=== PATIENT | male | born 1960 | race Caucasian/White ===

== ENCOUNTER 2020-04-14 12:49 | Outpatient (REF) | payer OTHER, SELFPAY ==
[2020-04-14 13:59] LABS: Iron 254 mcg/dL (45-160); Percent Iron Saturation 93 % (15-50); Total Iron Binding Capacity 274 mcg/dL (228-428); Unsaturated Iron Binding 20 ug/dL
[2020-04-14 14:19] LABS: Ferritin 67 ng/mL (20-250)
== END 2020-04-14 12:50 | disposition home or self-care (01) ==
LOC: HO.BBR 12:49
PROVIDERS: Visit Provider Internal Medicine
DX: E83.110 Hereditary hemochromatosis (principal)
CPT/HCPCS: 36415; 82728; 83540

== ENCOUNTER 2020-04-24 07:35 | Outpatient (REF) | payer OTHER, SELFPAY ==
--- NOTE | ~2020-04-24 | US_ITS ---
EXAMINATION: US ABDOMEN COMPLETE CLINICAL INFORMATION: Hemochromatosis. COMPARISON: Ultrasound abdomen complete dated 03/07/2018 and 01/22/2016. TECHNIQUE: Real-time imaging of the abdominal viscera. FINDINGS: PANCREAS: Most of the pancreas is obscured by overlying gas except for partially visualized body of the pancreas which is unremarkable. ABDOMINAL AORTA: The abdominal aorta is slightly ectatic but otherwise unremarkable. INFERIOR VENA CAVA: Visualized portions are normal. LIVER: The liver is normal in size. The liver contour is normal. There is diffuse increased liver echogenicity. No focal hepatic lesion. There is no intrahepatic biliary duct dilatation seen. GALLBLADDER: The gallbladder wall is mildly thickened measuring 0.5 cm. The gallbladder is physiologically distended without evidence of stones, sludge, polyps, or pericholecystic fluid. COMMON BILE DUCT: Normal in caliber measuring 0.3 cm in diameter. RIGHT KIDNEY: Normal. No hydronephrosis. No renal calculi or focal parenchymal lesions. The kidney measures 11.3 cm in maximum dimension. LEFT KIDNEY: There are 2 anechoic cysts in the lower pole measuring 5.5 x 3.5 x 3.2 cm and 3.2 x 3.1 x 2.2 cm. They are stable compared to previous study. No hydronephrosis. No renal calculi or focal parenchymal lesions. The kidney measures 11.6 cm in maximum dimension. SPLEEN: Normal. The spleen measures 10.2 cm in maximum dimension. FREE FLUID: None. US/US abdomen complete IMPRESSION: 2 lower pole left renal cysts are stable compared to previous ultrasound 03/07/2018. Mild hepatic steatosis without any focal lesion. Mild overall thickening but no echogenic stones or pericholecystic fluid collection.
== END 2020-04-24 07:36 | disposition home or self-care (01) ==
LOC: HO.US 07:35
PROVIDERS: Visit Provider Internal Medicine
DX: E83.110 Hereditary hemochromatosis (principal)
CPT/HCPCS: 76700

== ENCOUNTER 2020-05-30 08:41 | Outpatient (REF) | payer OTHER, SELFPAY ==
[2020-05-30 09:44] LABS: MANUAL DIFF FLAG NO
[2020-05-30 09:57] LABS: Alanine Aminotransferase 21 U/L (0-40); Albumin Level 4.1 g/dL (3.5-5.0); Alkaline Phosphatase 74 U/L (39-117); Aspartate Amino Transferase 27 U/L (5-37); Bilirubin Direct 0.2 mg/dL (0.0-0.5); Bilirubin Total 0.4 mg/dL (0.0-1.0); Total Protein 6.9 g/dL (6.5-8.0)
[2020-05-30 09:58] LABS: Basophils Percent Auto 0.6 % (0-2); Eosinophils Absolute Auto 0.1 X10*3/uL (0.0-0.4); Eosinophils Percent Auto 1.4 % (0-4); Hematocrit 44.5 % (42-52); Hemoglobin 14.6 g/dl (14.0-18.0); Imm Gran Abs Auto 0.03 X10*3/uL (0.00-0.03); Imm Gran Pct Auto 0.5 % (0.0-0.4); Lymphocytes Percent Auto 30.3 % (20-40); Mean Corpuscular HGB Conc 32.8 g/dl (31.0-36.0); Mean Corpuscular Hemoglobin 33.3 pg (27.0-33.0); Mean Corpuscular Volume 101.4 fL (80-98); Monocytes Absolute Auto 0.9 X10*3/uL (0.1-1.2); Monocytes Percent Auto 13.7 % (2-11); Neutrophils Absolute Auto 3.5 X10*3/uL (2.0-8.3); Neutrophils Percent Auto 53.5 % (45-73); Platelet Count 282 X10*3/uL (160-400); Red Blood Count 4.39 X10*6/uL (4.60-5.80); Red Cell Distribution Width 12.5 % (11.0-16.0); White Blood Count 6.5 X10*3/uL (4.8-10.8)
[2020-05-30 10:01] LABS: INTERNATIONAL NORM RATIO 0.9 (0.9-1.1); Prothrombin Time 11.2 SEC (10.8-13.0)
[2020-06-02 11:46] LABS: Alpha Fetoprotein 1.9 ng/mL (<6.1)
== END 2020-05-30 08:42 | disposition home or self-care (01) ==
LOC: HO.LAB 08:41
PROVIDERS: PCP Internal Medicine Medical Oncology; Visit Provider Internal Medicine
DX: E83.110 Hereditary hemochromatosis (principal)
CPT/HCPCS: 36415; 80076; 82105; 85025; 85610

== ENCOUNTER 2021-01-16 08:47 | Outpatient (REF) | payer OTHER, SELFPAY ==
[2021-01-16 10:29] LABS: Iron 253 mcg/dL (45-160); Total Iron Binding Capacity < 270 mcg/dL (228-428); Unsaturated Iron Binding < 17 ug/dL
[2021-01-16 10:49] LABS: Ferritin 122 ng/mL (20-250)
== END 2021-01-16 08:48 | disposition home or self-care (01) ==
LOC: HO.BBR 08:47
PROVIDERS: Visit Provider Internal Medicine
DX: E83.110 Hereditary hemochromatosis (principal)
CPT/HCPCS: 36415; 82728; 83540

== ENCOUNTER 2021-03-09 09:54 | Outpatient (REF) | payer OTHER, SELFPAY ==
[2021-03-09 10:08] LABS: MANUAL DIFF FLAG NO
[2021-03-09 10:21] LABS: Basophils Percent Auto 0.7 % (0-2); Eosinophils Absolute Auto 0.1 X10*3/uL (0.0-0.4); Eosinophils Percent Auto 2.5 % (0-4); Hematocrit 43.2 % (42.0-52.0); Hemoglobin 14.8 g/dl (14.0-18.0); Imm Gran Abs Auto 0.02 X10*3/uL (0.00-0.03); Imm Gran Pct Auto 0.4 % (0.0-0.4); Lymphocytes Absolute Auto 2.1 X10*3/uL (1.2-4.9); Lymphocytes Percent Auto 37.3 % (20-40); Mean Corpuscular HGB Conc 34.3 g/dl (31.0-36.0); Mean Corpuscular Hemoglobin 34.3 pg (27.0-33.0); Mean Platelet Volume 9.5 fL (9.4-12.4); Monocytes Absolute Auto 0.6 X10*3/uL (0.1-1.2); Monocytes Percent Auto 10.2 % (2-11); Neutrophils Absolute Auto 2.7 x10*3/uL (2.0-8.3); Neutrophils Percent Auto 48.9 % (45-73); Platelet Count 254 X10*3/uL (160-400); Red Blood Count 4.32 X10*6/uL (4.60-5.80); Red Cell Distribution Width 12.3 % (11.0-16.0); White Blood Count 5.6 X10*3/uL (4.8-10.8)
[2021-03-09 11:09] LABS: Alanine Aminotransferase 21 U/L (0-40); Albumin Level 4.1 g/dL (3.5-5.0); Alkaline Phosphatase 72 U/L (39-117); Anion Gap 10 (12-20); Aspartate Amino Transferase 25 U/L (5-37); Bilirubin Total 0.5 mg/dL (0.0-1.0); Blood Urea Nitrogen 13 mg/dL (9-16); Calcium 9.7 mg/dL (8.4-10.2); Carbon Dioxide 27 mmol/L (22-29); Chloride 107 mmol/L (96-108); Estimated Glomerular Filt Rate > 60; Glucose Random 91 mg/dL (60-115); Potassium 4.7 mmol/L (3.3-5.1); Sodium 139 mmol/L (135-145)
[2021-03-09 11:18] LABS: Thyroid Stimulating Hormone 0.93 uIU/mL (0.32-4.0)
== END 2021-03-09 09:55 | disposition home or self-care (01) ==
LOC: HO.LAB 09:54
PROVIDERS: PCP Internal Medicine Medical Oncology; Visit Provider Internal Medicine Medical Oncology
DX: E83.110 Hereditary hemochromatosis (principal)
CPT/HCPCS: 36415; 80053; 84443; 85025

== ENCOUNTER 2021-04-16 15:11 | Outpatient (REF) | payer OTHER, SELFPAY | END 2021-04-16 15:12 | disposition home or self-care (01) | LOC: HO.BBR 15:11 | PROVIDERS: Visit Provider Internal Medicine | DX: Z13.89 Encounter for screening for other disorder (principal) ==

== ENCOUNTER 2021-05-14 07:49 | Outpatient (REF) | payer OTHER, SELFPAY ==
--- NOTE | ~2021-05-14 | US_ITS ---
EXAMINATION: US ABDOMEN COMPLETE CLINICAL INFORMATION: Hereditary hemochromatosis. COMPARISON: Ultrasound abdomen complete 04/24/2020 and 03/07/2018. TECHNIQUE: Real-time imaging of the abdominal viscera. FINDINGS: PANCREAS: The head and the body the pancreas is homogeneous in echotexture. The tail is obscured by overlying gas. ABDOMINAL AORTA: The proximal, mid, and distal segments are normal in caliber. INFERIOR VENA CAVA: Visualized portions are normal. LIVER: The liver is normal in size. The liver contour is normal. There is increased liver echogenicity. No focal hepatic lesion. There is no intrahepatic biliary duct dilatation seen. GALLBLADDER: The gallbladder wall thickness is 0.23 cm. The gallbladder is physiologically distended without evidence of stones, sludge, polyps, wall thickening or pericholecystic fluid. COMMON BILE DUCT: Normal in caliber measuring 0.4 cm in diameter. RIGHT KIDNEY: Normal. No hydronephrosis. No renal calculi or focal parenchymal lesions. The kidney measures 12.2 cm in maximum dimension. LEFT KIDNEY: There are anechoic cysts in the lower pole measuring 5.1 x 3.7 x 4.6 cm and 3.3 x 3.2 x 3.6 cm. No hydronephrosis or renal calculi. The kidney measures 11.5 cm in maximum dimension. SPLEEN: Normal. The spleen measures 10.0 cm in maximum dimension. FREE FLUID: None. US/US abdomen complete IMPRESSION: Mild hepatic steatosis without focal lesion. Left renal lower pole cysts.
== END 2021-05-14 07:50 | disposition home or self-care (01) ==
LOC: HO.US 07:49
PROVIDERS: Visit Provider Internal Medicine
DX: E83.110 Hereditary hemochromatosis (principal)
CPT/HCPCS: 76700

== ENCOUNTER 2021-05-15 09:01 | Outpatient (REF) | payer OTHER, SELFPAY ==
[2021-05-15 09:29] LABS: MANUAL DIFF FLAG NO
[2021-05-15 09:47] LABS: Basophils Percent Auto 0.5 % (0-2); Eosinophils Absolute Auto 0.1 X10*3/uL (0.0-0.4); Eosinophils Percent Auto 1.6 % (0-4); Hematocrit 43.8 % (42.0-52.0); Imm Gran Abs Auto 0.03 X10*3/uL (0.00-0.03); Imm Gran Pct Auto 0.5 % (0.0-0.4); Lymphocytes Absolute Auto 2.3 X10*3/uL (1.2-4.9); Lymphocytes Percent Auto 36.6 % (20-40); Mean Corpuscular HGB Conc 34.2 g/dl (31.0-36.0); Mean Corpuscular Hemoglobin 33.5 pg (27.0-33.0); Mean Corpuscular Volume 97.8 fL (80.0-98.0); Mean Platelet Volume 9.7 fL (9.4-12.4); Monocytes Absolute Auto 0.8 X10*3/uL (0.1-1.2); Monocytes Percent Auto 12.5 % (2-11); Neutrophils Percent Auto 48.3 % (45-73); Platelet Count 234 X10*3/uL (160-400); Red Blood Count 4.48 X10*6/uL (4.60-5.80); Red Cell Distribution Width 13.1 % (11.0-16.0); White Blood Count 6.2 X10*3/uL (4.8-10.8)
[2021-05-15 09:50] LABS: Alanine Aminotransferase 22 U/L (0-40); Albumin Level 4.3 g/dL (3.5-5.0); Alkaline Phosphatase 76 U/L (39-117); Aspartate Amino Transferase 25 U/L (5-37); Bilirubin Direct 0.4 mg/dL (0.0-0.5); Bilirubin Total 0.9 mg/dL (0.0-1.0); Total Protein 7.2 g/dL (6.5-8.0)
[2021-05-15 09:53] LABS: INTERNATIONAL NORM RATIO 0.9 (0.9-1.1); Prothrombin Time 10.7 SEC (9.9-13.0)
[2021-05-18 13:02] LABS: Alpha Fetoprotein 2.2 ng/mL (<6.1)
[2021-05-21 15:37] LABS: FIB-ALT 17 U/L (9-46); FIB-Alpha-2-Macroglobulin 158 mg/dL (106-279); FIB-Apolipoprotein A1 187 mg/dL (94-176); FIB-GGT 51 U/L (3-70); FIB-Haptoglobin 111 mg/dL (43-212); FIB-Total Bilirubin 0.8 mg/dL (0.2-1.2); Liver Fibrosis Score 0.23; Liver Fibrosis Stage F0-F1; Nec Inflam Act Grade A0; Nec Inflam Act Score 0.06
== END 2021-05-15 09:02 | disposition home or self-care (01) ==
LOC: HO.LAB 09:01
PROVIDERS: PCP Internal Medicine Medical Oncology; Visit Provider Internal Medicine
DX: E83.110 Hereditary hemochromatosis (principal)
CPT/HCPCS: 36415; 80076; 81596; 82105; 85025; 85610

== ENCOUNTER 2021-05-18 09:34 | Day surgery (SDC) | payer OTHER, SELFPAY ==
[2021-05-12 15:40] VITALS: BMI 23.1
--- NOTE | 2021-05-15 09:24 | P.CONAN_ITS ---
Documented by User: Zunilda Guardado NP 05/15/21 09:25 HPI - Anesthesia Eval Consult details Narrative: 61yo M for Colonoscopy [facility] Past Medical History Medical History (Updated 05/12/21 @ 15:37 by Tahira Sinha RN) Hemochromatosis HTN (hypertension) Surgical History Surgical History (Updated 05/12/21 @ 15:39 by Tahira Sinha RN) H/O colonoscopy History of liver biopsy Hx of shoulder surgery Social History Social History Patient Tobacco Use Status: Current someday Tobacco user Tobacco use type: Cigarette Cigarettes Per Day: 5 Use of substances other than those prescribed or required for medical reasons: No Advance Directives: No Advance Directives Information Provided: Yes Advance Directives on File: No Meds Allergies Allergy/AdvReac Type Severity Reaction Status Date / Time No Known Allergies Allergy Unverified 11/01/19 15:09 [No Known Allergies*] Home Medications Medication Instructions Recorded Confirmed Last Taken Type metoprolol tartrate 25 mg tablet 3 tab PO DAILY 05/12/21 05/12/21 05/18/21 History Exam Exam Date and Time: May 15, 2021 0924 Height,Weight and Vital Signs: Height 5 ft 11 in Weight 75.296 kg Pertinent Lab Results Pertinent Lab Results: Laboratory Tests 03/09/21 03/09/21 10:06 10:06 WBC 5.6 Hgb 14.8 Hct 43.2 Plt Count 254 Sodium 139 Potassium 4.7 Chloride 107 Carbon Dioxide 27 BUN 13 Creatinine 0.95 Assessment and Plan Assessment Anesthesia Assessment: Chart Reviewed Documented by User: Dk Brito MD 05/18/21 21:13 HPI - Anesthesia Eval Consult details Narrative: 61yo M for Colonoscopy haemochromatosis [facility] Past Medical History Medical History (Updated 05/12/21 @ 15:37 by Tahira Sinha RN) Hemochromatosis HTN (hypertension) Functional capacity: independent ambulation Family History Family history of problems with anesthesia: No Surgical History Surgical History (Updated 05/12/21 @ 15:39 by Tahira Sinha RN) H/O colonoscopy History of liver biopsy Hx of shoulder surgery History of Problems with Anesthesia: No Social History Social History Patient Tobacco Use Status: Current someday Tobacco user Tobacco use type: Cigarette Cigarettes Per Day: 5 Use of substances other than those prescribed or required for medical reasons: No Advance Directives: No Advance Directives Information Provided: Yes Advance Directives on File: No Meds Allergies Allergy/AdvReac Type Severity Reaction Status Date / Time No Known Allergies Allergy Unverified 11/01/19 15:09 [No Known Allergies*] Home Medications Medication Instructions Recorded Confirmed Last Taken Type metoprolol tartrate 25 mg tablet 3 tab PO DAILY 05/12/21 05/12/21 05/18/21 History Exam Airway Mallampati Class: II TM Dist: >3cm Neck ROM: Full Loose/Missing/Broken Teeth: Yes Heart: rrr Lungs: b/l breath sounds Assessment and Plan Assessment Anesthesia Assessment: Anesthesia Plan Discussed Final Anesthetic Review Family History of Problems with Anesthesia: No History of Problems with Anesthesia: No ASA Class: II Final Preanesthetic Review: Meds/Allgs Chart Reviewed, Consent Obtained/Reviewed and Anes Risks/Benef Reviewed Patient Risk: Intermediate Procedure Risk: Intermediate Anesthetic Plan Anesthetic Plan: MAC: Disposition: Standard PACU
[2021-05-18 09:56] VITALS: BP 144/76; PULSE 49; RESP 16; TEMP 36.5; O2SAT 98
[2021-05-18] MEDS: Lactated Ringers 1,000 ML 100 ML IVCONT (10:05)
--- NOTE | 2021-05-18 10:21 | PC.NURSE ---
MD FORD AWARE OF PATIENT LOW HEART RATE. ASYMPTOMATIC.
--- NOTE | 2021-05-18 12:19 | P.BOP_ITS ---
Brief Operative Note Date of Service: 05/18/21 Pre-op diagnosis: Screening, Family history of colon cancer Post-op diagnosis: other (Diverticulosis) Procedure: Colonoscopy to the cecum Surgeon: Serjio Richey Anesthesia: MAC Was an [employer] used for this Procedure?: No Estimated blood loss (mL): 0 Pathology: none sent Condition: stable Disposition: PACU
[2021-05-18 12:22] VITALS: BP 123/71; PULSE 61; RESP 16; TEMP 37.1; O2SAT 98
[2021-05-18 12:38] VITALS: BP 133/77; PULSE 47; RESP 18; TEMP 36.7; O2SAT 99
--- NOTE | 2021-05-18 13:24 | OP_ITS ---
SURGEON: Serjio Richey MD INDICATIONS: The patient presents for evaluation of colorectal cancer screening and family history of colon cancer. Full consent has been obtained from him for this, including risks of bleeding and perforation. PREOPERATIVE DIAGNOSIS: POSTOPERATIVE DIAGNOSIS: PROCEDURE PERFORMED: Colonoscopy to the cecum. ESTIMATED BLOOD LOSS: COMPLICATIONS: ANESTHESIA: Monitored anesthesia care. ASSISTANTS: SPECIMENS: PREOPERATIVE DIAGNOSES: Colorectal cancer screening and family history of colon cancer. POSTOPERATIVE DIAGNOSES: Colorectal cancer screening and family history of colon cancer, diverticulosis and internal hemorrhoids. DESCRIPTION OF PROCEDURE: The patient was placed in the left lateral decubitus position. The digital rectal exam revealed no abnormalities. The Olympus video pediatric colonoscope was entered into the rectum and advanced easily to the cecum. Once in the cecum, I did identify normal-appearing cecal pouch with normal-appearing ileocecal valve. The entire cecum and ileocecal valve appeared normal. There was transillumination of light deep in the right lower quadrant. The scope was slowly withdrawn assessing all mucosal surfaces carefully. Preparation was excellent. I did not visualize any sign of polyps, colitis, nor angiodysplasia. There was a mild amount of sigmoid diverticulosis. In the rectum, scope was retroflexed visualizing internal hemorrhoids, but no other pathology. The rectal mucosa appeared normal. The scope was straightened and withdrawn from the patient. He tolerated the procedure well and was returned to the recovery area in stable condition. IMPRESSION: 1. Diverticulosis. 2. Internal hemorrhoids. PLAN: Given his family history of his sister having had colon cancer in her 40s, I would recommend a repeat colonoscopy in 5 years for further screening. He was advised to see me in 1 year for followup of the underlying hemochromatosis. He would otherwise see me on a p.r.n. basis. This has been discussed with his . MD MIRTA Emmanuel/JENS / [id number]
== END 2021-05-18 13:00 | disposition home or self-care (01) ==
PROVIDERS: PCP Internal Medicine Medical Oncology; Visit Provider Internal Medicine
PROC: 0DJD8ZZ Inspection of Lower Intestinal Tract, Via Natural or Artificial Opening Endoscopic (ICD-10-PCS; CPT 45378; principal; 2021-05-18 11:00)
DX: Z12.11 Encounter for screening for malignant neoplasm of colon (principal); Z80.0 Family history of malignant neoplasm of digestive organs; K57.30 Diverticulosis of large intestine without perforation or abscess without bleeding; K64.8 Other hemorrhoids; I10 Essential (primary) hypertension; E83.110 Hereditary hemochromatosis; F17.210 Nicotine dependence, cigarettes, uncomplicated; Z79.899 Other long term (current) drug therapy
CPT/HCPCS: 45378

== ENCOUNTER 2021-07-29 14:49 | Outpatient (REF) | payer OTHER, SELFPAY ==
[2021-07-29 16:29] LABS: Iron 249 mcg/dL (45-160); Percent Iron Saturation 88 % (15-50); Total Iron Binding Capacity 283 mcg/dL (228-428); Unsaturated Iron Binding 34 ug/dL
[2021-07-29 16:49] LABS: Ferritin 44 ng/mL (20-250)
== END 2021-07-29 14:50 | disposition home or self-care (01) ==
LOC: HO.BBR 14:49
PROVIDERS: Visit Provider Internal Medicine
DX: E83.110 Hereditary hemochromatosis (principal)
CPT/HCPCS: 36415; 82728; 83540

== ENCOUNTER 2021-11-11 15:13 | Outpatient (REF) | payer OTHER, SELFPAY | END 2021-11-11 15:14 | disposition home or self-care (01) | LOC: HO.BBR 15:13 | PROVIDERS: Visit Provider Internal Medicine | DX: Z13.89 Encounter for screening for other disorder (principal) ==

== ENCOUNTER 2022-02-11 13:48 | Outpatient (REF) | payer OTHER, SELFPAY ==
[2022-02-11 16:04] LABS: Ferritin 34 ng/mL (20-250); Iron 251 mcg/dL (45-160); Percent Iron Saturation 85 % (15-50); Total Iron Binding Capacity 294 mcg/dL (228-428); Unsaturated Iron Binding 43 ug/dL
== END 2022-02-11 13:49 | disposition home or self-care (01) ==
LOC: HO.BBR 13:48
PROVIDERS: PCP Internal Medicine Medical Oncology; Visit Provider Internal Medicine
DX: E83.110 Hereditary hemochromatosis (principal)
CPT/HCPCS: 36415; 82728; 83540

== ENCOUNTER 2022-05-07 14:05 | Outpatient (REF) | payer OTHER, SELFPAY | END 2022-05-07 14:06 | disposition home or self-care (01) | LOC: HO.BBR 14:05 | PROVIDERS: Visit Provider Internal Medicine | DX: Z13.89 Encounter for screening for other disorder (principal) ==

== ENCOUNTER 2022-06-12 07:44 | Outpatient (REF) | payer OTHER, SELFPAY ==
[2022-06-12 09:34] LABS: Prostate Specific Antigen 2.86 ng/mL (<0.05-4.0)
[2022-06-12 09:41] LABS: Alanine Aminotransferase 20 U/L (0-40); Albumin Level 4.3 g/dL (3.5-5.0); Alkaline Phosphatase 60 U/L (39-117); Anion Gap 14 (12-20); Aspartate Amino Transferase 28 U/L (5-37); Bilirubin Total 0.8 mg/dL (0.0-1.0); Blood Urea Nitrogen 12 mg/dL (9-16); Calcium 9.7 mg/dL (8.4-10.2); Carbon Dioxide 23 mmol/L (22-29); Chloride 110 mmol/L (96-108); Cholesterol 210 mg/dL; Estimated Glomerular Filt Rate > 60; Glucose Random 98 mg/dL (60-115); HDL Cholesterol 68 mg/dL; Potassium 4.9 mmol/L (3.3-5.1); Sodium 142 mmol/L (135-145); Total Protein 6.9 g/dL (6.5-8.0)
[2022-06-12 09:52] LABS: Creatinine Urine 179.91 mg/dL
[2022-06-16 16:47] LABS: Triglycerides 84 mg/dL
[2022-06-17 09:36] LABS: LDL Cholesterol Calculated 126 mg/dl
== END 2022-06-12 07:45 | disposition home or self-care (01) ==
LOC: HO.LAB 07:44
PROVIDERS: PCP Hospitalist; Visit Provider Hospitalist
DX: Z12.5 Encounter for screening for malignant neoplasm of prostate (principal); I10 Essential (primary) hypertension
CPT/HCPCS: 36415; 80053; 80061; 82043; 84153

== ENCOUNTER 2022-08-06 14:33 | Outpatient (REF) | payer OTHER, SELFPAY ==
[2022-08-06 20:04] LABS: Iron 114 mcg/dL (45-160); Percent Iron Saturation 40 % (15-50); Total Iron Binding Capacity 285 mcg/dL (228-428); Unsaturated Iron Binding 171 ug/dL
[2022-08-06 20:08] LABS: Ferritin 25 ng/mL (20-250)
== END 2022-08-06 14:34 | disposition home or self-care (01) ==
LOC: HO.BBR 14:33
PROVIDERS: PCP Hospitalist; Visit Provider Internal Medicine
DX: E83.110 Hereditary hemochromatosis (principal)
CPT/HCPCS: 36415; 82728; 83540

== ENCOUNTER 2022-10-06 09:05 | Outpatient (REF) | payer OTHER, SELFPAY ==
--- NOTE | ~2022-10-06 | US_ITS ---
EXAMINATION: US COMPLETE ABDOMEN WITH LIVER ELASTOGRAPHY CLINICAL INFORMATION: COMPARISON: None available. TECHNIQUE: Real-time imaging of the abdominal viscera. Noninvasive ultrasound liver fibrosis assessment is performed using Monty ElastPQ point quantification shear wave elastography (2D-SWE) with a C5-2 MHz transducer. Multiple elastography samples are obtained. FINDINGS: PANCREAS: Normal. The visualized pancreatic head and body are normal in appearance. The remainder of the pancreas is obscured from visualization by the overlying bowel gas. ABDOMINAL AORTA: The proximal, middle, and distal aortic segments are normal in caliber. INFERIOR VENA CAVA: Visualized portions are normal. LIVER: The liver demonstrates normal size, contour and generally increased echogenicity, with pericholecystic sparing. No focal lesion or intrahepatic biliary duct dilatation. The right lobe measures 17.6 cm in length. The left lobe measures 12.1 cm in length. Portal flow is towards the liver (hepatopetal). Shear wave liver elastography median stiffness is 2.37 m/s (reference: normal median stiffness is 1.3 m/s or less). IQR/median stiffness to assess sampling precision is 0.07 (reference: good quality data set is IQR/median stiffness of 0.15 or less). GALLBLADDER: Normal. The gallbladder is physiologically distended without evidence of stones, sludge, polyps, wall thickening or pericholecystic fluid. COMMON BILE DUCT: Normal in caliber measuring 0.5 cm in diameter. RIGHT KIDNEY: Normal. No hydronephrosis. No renal calculi or focal parenchymal lesions. The kidney measures 11.1 cm in maximum dimension. LEFT KIDNEY: At the interpolar aspect, a 5.4 cm in maximal diameter benign, simple cyst is seen. At the lower pole, a 3.6 cm in maximal diameter benign, simple cyst is seen. These require no imaging follow-up. No hydronephrosis. No renal calculi or focal parenchymal lesions. The kidney measures 11.1 cm in maximum dimension. SPLEEN: Normal. The spleen measures 9.3 cm in maximum dimension. FREE FLUID: None. US/US abdomen comp w elastography IMPRESSION: 1. There is generalized increase in hepatic echotexture, consistent with fatty infiltration or hepatocellular disease. Please correlate clinically. Characteristic pericholecystic sparing favors fatty infiltration No focal hepatic mass or intrahepatic biliary dilatation is seen. 2. There is mild hepatomegaly. 3. Liver elastography: Although measurements appear consistent with compensated advanced chronic liver disease, there is statistical variability of the sampling which decreases accuracy. REFERENCE: Society of Radiologists in Ultrasound Liver Stiffness Thresholds (2020): LIVER STIFFNESS THRESHOLDS: *Liver Stiffness equal or less than 1.3 m/s: High probability of being normal. *Liver Stiffness less than 1.7 m/s: In the absence of other known clinical signs, rules out compensated advanced chronic liver disease. *Liver Stiffness 1.7-2.1 m/s: Suggestive of compensated advanced chronic liver disease but need further test for confirmation. *Liver Stiffness over 2.1 m/s: Rules in compensated advanced chronic liver disease. *Liver Stiffness over 2.4 m/s: Suggestive of clinically significant portal hypertension. QUALITY OF DATA SET: *IQR/Median value equal or less than 0.15 implies a quality data set. *IQR/Median value over 0.15 implies a poor quality data set. SIGNIFICANT CHANGE FROM PRIOR EXAM: Significant change if liver stiffness measurement is 10% or greater from prior exam. OTHER CONSIDERATIONS: The stage of liver fibrosis may be overestimated in the setting of acute hepatitis, liver inflammation, elevated liver function tests, hepatic vascular congestion, obstructive cholestasis, non-fasting state, and infiltrative diseases such as amyloidosis and lymphoma. In some patients with NAFLD, the liver stiffness thresholds for compensated advanced chronic liver disease may be lower. In causes other than viral hepatitis and NAFLD, liver stiffness thresholds are not well established.
== END 2022-10-06 09:06 | disposition home or self-care (01) ==
LOC: HO.US 09:05
PROVIDERS: PCP Hospitalist; Visit Provider Internal Medicine
DX: E83.110 Hereditary hemochromatosis (principal)
CPT/HCPCS: 76705; 76981

== ENCOUNTER 2022-11-15 15:17 | Outpatient (REF) | payer OTHER, SELFPAY | END 2022-11-15 15:18 | disposition home or self-care (01) | LOC: HO.BBR 15:17 | PROVIDERS: PCP Hospitalist; Visit Provider Internal Medicine | DX: Z13.89 Encounter for screening for other disorder (principal) ==

== ENCOUNTER 2023-02-22 10:53 | Outpatient (REF) | payer OTHER, SELFPAY | END 2023-02-22 10:54 | disposition home or self-care (01) | LOC: HO.BBR 10:53 | PROVIDERS: PCP Hospitalist; Visit Provider Internal Medicine | DX: Z13.89 Encounter for screening for other disorder (principal) ==

== ENCOUNTER 2023-09-16 09:53 | Outpatient (REF) | payer OTHER, SELFPAY ==
[2023-09-16 12:13] LABS: Iron 143 mcg/dL (45-160); Percent Iron Saturation 50 % (15-50); Total Iron Binding Capacity 285 mcg/dL (228-428); Unsaturated Iron Binding 142 ug/dL
[2023-09-16 12:16] LABS: Ferritin 22 ng/mL (20-250)
== END 2023-09-16 09:54 | disposition home or self-care (01) ==
LOC: HO.BBR 09:53
PROVIDERS: PCP Hospitalist; Visit Provider Internal Medicine
DX: E83.110 Hereditary hemochromatosis (principal)
CPT/HCPCS: 36415; 82728; 83540

== ENCOUNTER 2024-02-01 07:44 | Outpatient (REF) | payer OTHER, SELFPAY ==
--- OUTSIDE RECORDS SUMMARY | 2024-02-01 07:46 | XMS_ITS ---
Author Organization [facility] Address [address] [place] [address] Care Team Providers Care Physician Asst Name Role Phone BRADY JACOME Primary Care Provider Serjio Winters [phone] REASON FOR VISIT needs therapeutic phlebotomy order Encounters Encounter Location Date Provider Diagnosis [facility] [address] [place] [address] 09/09/2023 Serjio Richey PLAN OF TREATMENT Next Appt Details Provider Name:Serjio Richey , 01/17/2025 09:00:00 AM, [address], [address], [place], [address],
--- OUTSIDE RECORDS SUMMARY | 2024-02-01 07:46 | XMS_ITS ---
Author Organization [facility] Address [address] [place] [address] Care Team Providers Care Supervisor [employer] Name Role Phone BRADY JACOME Primary Care Provider Serjio Winters [phone] ALLERGIES No Known Allergies REASON FOR VISIT Patient presents today for hemochromatosis MEDICATIONS Medication SIG (Take, Route, Frequency, Duration) Notes Start Date End Date Status Metoprolol Tartrate 25 MG TAKE 1 TABLET BY MOUTH EVERY DAY Oral for 30 Active IMMUNIZATIONS Vaccine Route Administration Date Status Comme nts Influenza Unknown 01/18/2024 Refused SOCIAL HISTORY Tobacco Use: Social History Observation Description Date Details (start date - stop date) Current Smoker NA - NA Sex Assigned At : Social History Observation Description Sex Assigned At Unknown Tobacco Use/Smoking Question Answer Notes Patient is a current smoker How often do you smoke cigarettes? some days, bu t not every day How many cigarettes a day do you smoke? 5 or les s How soon after you wake up d o you smoke your first cigarette? after 60 minutes Are you interested in quitting? Ready to quit Alcohol Screen Question Answer Notes Did you have a drink contain ing alcohol in the past year? Yes How often did you have a dri nk containing alcohol in the past year? 4 or more times a week (4 points) How many drinks did you have on a typical day when you were drinking in the past year? 3 or 4 drinks (1 point) How often did you have 6 or more drinks on one occasion in the past year? Monthly (2 points) Points 7 Interpretation Positive VITAL SIGNS BMI 23.76 kg/m2 01/18/2024 Blood pressure systolic 000 mm Hg 01/18/20 24 Blood pressure diastolic 00 mm Hg 024 Height 71 in 01/18/2024 Temperature 97.7 degrees Fahrenheit 01/18/20 24 Weight 170 lb 6 oz lbs 01/18/2024 Encounters Encounter Location Date Provider Diagnosis [facility] [address] [place] [address] 01/18/2024 Serjio Richey Hereditary hemochromatosis E83.110 ; Family history of colon cancer Z80.0 and Encounter for screening for malignant neoplasm of colon Z12.11 ASSESSMENTS Encounter Date Diagnosis Assessment Notes Treatment Notes Treatment Clinical Notes 01/18/2024 Hereditary hemochromatosis (ICD-10 - E83.110) Continue the phlebotomy every 3 months 01/18/2024 Family history of colon cancer (ICD-10 - Z80.0) Repeat colonoscopy in 202601/18/2024 Encounter for screening for malignant neoplasm of colon (ICD-10 - Z12.11) PLAN OF TREATMENT Treatment Notes Assessment Notes Hereditary hemochromatosis Continue the phlebotomy every 3 months Family history of colon cancer Repeat co lonoscopy in 2026 Pending Test Test Name Order Date LIVER PROFILE 01/18/2024 CBC w DIFF 01/18/2024 ALPHA-FETOPROTEIN,TUMOR MARKER 4 Prothrombin Time INR 01/18/2024 Liver Fibrosis Pnl 01/18/2024 US abdomen comp w elastography 4 Next Appt Details Follow Up: 1 Year, Reason: Provider Name:Serjio Richey , 01/17/2025 09:00:00 AM, [address], [address], [place], [address], Progress Notes * Examination Category Sub-Category Detail Notes General Examination GENERAL APPEARANCE: pleasant , well nourished, well developed, in no acute distress EYES: sclera non-icteric NECK/THYROID: no cervical lymphade nopathy, neck supple HEART: S1, S2 normal LUNGS: clear to auscultatio n bilaterally ABDOMEN: normal bowel sounds, no guarding or rigidity, no hepatosplenomegaly, no masses palpable, soft, nontender, nondistended. NEUROLOGIC: alert and oriented SKIN: nonjaundiced, no spi antonio angiomata. EXTREMITIES: no edema ORAL CAVITY: mucosa moist
--- OUTSIDE RECORDS SUMMARY | 2024-02-01 07:47 | XMS_ITS ---
Author Organization [facility] Address [address] [place] [address] Care Team Providers Care Press Operator [employer] Name Role Phone BRADY JACOME Primary Care Provider REASON FOR VISIT 1 month f/u Encounters Encounter Location Date Provider Diagnosis [facility] [address] [place] [address] 12/29/2022 BRADY JACOME Plan Of Treatment No Information Progress Notes * JUANRobertoDOB:1960 ( 63 yo M)Acc No.[id number]:12/29/2022 Progress Notes Patient:?Roberto POLANCO Provider:?BRADY JACOME MD :1960???Age:62 Y???Sex:Male Jermain e:12/29/2022 Address:[address] [place], [place] [id number] Subjective: * Chief Complaints: * ???1. 1 month f/u. * Medical History:? Objective: * Vitals:? Assessment: Plan: * Treatment: * * Electronic signature of MARCIA JACOME MD on 02/01/2024 at 07:47 AM EST Sign off status: Pending * Provider:?BRADY JACOME MD Date:?12/29 Generated for Claudia urrutia/Leslee/eTransmitting on:?02/01/2024 07:47 AM EST
--- OUTSIDE RECORDS SUMMARY | 2024-02-01 07:47 | XMS_ITS | Patient Health Record ---
Author Organization [facility] Address [address] [place] [address] Care Team Providers Care Cone Trucker Name Role Phone BRADY JACOME Primary Care Provider Serjio Winters [phone] ALLERGIES No Known Allergies RESULTS Component Value Reference Range Notes Therapeutic Phlebotomy Reviewed date:02/22/2023 06:28:54 PM Interpretation: Performing Lab:[facility], [address] [place] [phone] Notes/Report: THER/HGB 15.7 14.0-18.0 g/dL THER/HCT TNP 42.0-52.0 % Therapeutic Phlebotomy Phlebotomy Performed 500 mls drawn on 02/22/23. Please note that a copy of this report has been sent to the Primary Care Physician, the ordering physician and any physician designated by patient request. IRON PROFILE Reviewed date:09/16/2023 11:19:30 PM Interpretation: Performing Lab:[facility], [address] [place] [phone] Notes/Report: Iron 143 45-160 mcg/dL Total Iron Binding Capacity 285 228-428 mcg/dL Percent Iron Saturation 50 15-50 % Unsaturated Iron Binding 142 Ferritin Reviewed date:09/16/2023 11:19:39 PM Interpretation: Performing Lab:[facility], [address] [place] [phone] Notes/Report: Ferritin 22 20-250 ng/mL Therapeutic Phlebotomy Reviewed date:09/17/2023 04:31:48 PM Interpretation: Performing Lab:[facility], [address] [place] [phone] Notes/Report: THER/HGB 13.9 14.0-18.0 g/dL THER/HCT TNP 42.0-52.0 % Therapeutic Phlebotomy Phlebotomy Performed 500 mls drawn on 09/16/23. Please note that a copy of this report has been sent to the Primary Care Physician, the ordering physician and any physician designated by patient request. REASON FOR REFERRAL No Information MEDICATIONS Medication SIG (Take, Route, Frequency, Duration) Notes Start Date End Date Status Metoprolol Tartrate 25 MG TAKE 1 TABLET BY MOUTH EVERY DAY Oral for 30 Active IMMUNIZATIONS Vaccine Route Administration Date Status Comme nts Influenza Unknown 06/04/2020 Refused Influenza Unknown 04/15/2021 Refused Influenza Unknown 01/18/2024 Refused SOCIAL HISTORY Tobacco [...] Monthly (2 points) Points 7 Interpretation Positive PROBLEMS Problem Type ICD Code Onset Dates Problem Status W/U Status Risk SNOMED Code Notes Problem Encounter for screening for malignant neoplasm of colon (Z12.11) Active confirmed 778107974 Problem Hereditary hemochromatosis (E83.110) Active confirmed 44630841 Problem Encounter for screening for malignant neoplasm of rectum (Z12.12) Active confirmed Screening for malignant neoplasm of rectum (056072384) Problem Family history of colon cancer (Z80.0) Active confirmed 438359954 Problem Diverticulosis of colon (K57.30) Active confirmed Diverticulosi s of colon (957167631) VITAL SIGNS Temperature 97.7 degrees Fahrenheit 01/18/2024 Blood pressure diastolic 00 mm Hg 01/18/2024 Height 71 in 01/18/2024 Blood pressure systolic 000 mm Hg 01/18/2024 Weight 170 lb 6 oz lbs 01/18/2024 BMI 23.76 kg/m2 01/18/2024 Encounters Encounter Location Date Provider Diagnosis [facility] [address] [place] [address] 01/18/2024 Serjio Richey Hereditary hemochromatosis E83.110 ; Family history of colon cancer Z80.0 and Encounter for screening for malignant neoplasm of colon Z12.11 [facility] [address] [place] [address] 09/09/2023 Serjio Richey ASSESSMENTS Encounter Date Diagnosis Assessment Notes Treatment Notes Treatment Clinical Notes 01/18/2024 Hereditary hemochromatosis (ICD-10 - E83.110) Continue the phlebotomy every 3 months 01/18/2024 Family history of colon cancer (ICD-10 - Z80.0) Repeat colonoscopy in 202601/18/2024 Encounter for screening for malignant neoplasm of colon (ICD-10 - Z12.11) PLAN OF TREATMENT Pending Test Test Name Order Date LIVER PROFILE 02/19/2018 LIVER PROFILE 01/05/2012 LIVER PROFILE 04/15/2021 LIVER PROFILE 04/15/2020 LIVER PROFILE 01/18/2024 LIVER PROFILE 09/17/2022 CBC w DIFF 04/15/2021 CBC w DIFF 04/15/2020 CBC w DIFF 01/18/2024 CBC w DIFF 09/17/2022 PROTHROMBIN TIME (PT, INR) 04/15/2021 PROTHROMBIN TIME (PT, INR) 04/15/2020 ALPHA-FETOPROTEIN,TUMOR MARKER 3 ALPHA-FETOPROTEIN,TUMOR MARKER 9 ALPHA-FETOPROTEIN,TUMOR MARKER 2 ALPHA-FETOPROTEIN,TUMOR MARKER 4 ALPHA-FETOPROTEIN,TUMOR MARKER 1 ALPHA-FETOPROTEIN,TUMOR MARKER 4 US ABD 04/15/2020 HCV LIVER FIBROSIS, FIBRO TEST 2 US ABDOMEN COMP WITH ELASTOGRAPHY 2021 Prothrombin Time INR 01/18/2024 Alpha Fetoprotein 04/15/2021 Liver Fibrosis Pnl 09/17/2022 Liver Fibrosis Pnl 01/18/2024 US abdomen comp w elastography 3 US abdomen comp w elastography 4 Future Test Test Name Order Date COLONOSCOPY 01/14/2016 COLONOSCOPY 04/15/2021 Next Appt Details Provider Name:Serjio Richey , 01/17/2025 09:00:00 AM, [address], [address], [place], [address], Insurance Providers Payer Name Payer Address Payer Phone Subscriber Number Group Number Insured Name Patient Relationship to Insured Coverage Start Date Coverage End Date [address] [place] [address] [id number] ROSETTA POLANCO Self - patient is the insured 9 9 MEDICAL (GENERAL) HISTORY Medical History History ICD Code Colonoscopy 12/17/2009-hyperplastic poly p Hemochromatosis,which is cur rently being treated with phlebotomy every 2-3 months-liver biopsy in 1993 was negative for fibrosis nor cirrhosis--- normal alpha-fetoprotein level and ultrasound in January 2012, normal ferritin level in July 2013(although his iron saturation was nearly 100%); laboratories in August of 2015 showed an iron saturation of 52%, iron of 160, and a ferritin of 45. He had a normal liver profile and alpha-fetoprotein level in April of 2015. Having phlebotomies every 3 months as of the September 2022 office visit with normal iron saturation and ferritin level. Denies LA,DM,CVA,Lung disease,renal dise ase HTN Neg. colonoscopy in 03/2016 Negative screening colonoscopy in May of 2021 Surgical History Surgery Date(Month/Year) Right shoulder
--- OUTSIDE RECORDS SUMMARY | 2024-02-01 07:47 | XMS_ITS ---
Author Organization [facility] Address [address] [place] [address] Care Team Providers Care Lap Hand Tool Name Role Phone BRADY JACOME Primary Care Provider REASON FOR VISIT rsc appt Encounters Encounter Location Date Provider Diagnosis [facility] [address] [place] [address] 12/28/2022 BRADY JACOME Plan Of Treatment No Information Progress Notes * Roberto MARTINEZDOB:1960 ( 62 yo M)Acc No.[id number]:12/28/2022 Patient:?Roberto MARTINEZ :1960???Age:62 Y???Sex:Male Address:[address] [place] [address] [place] [address] * true * Date:? Generated for Sonami renan/Leslee/eTransmitting on:?02/01/2024 07:47 AM EST
--- OUTSIDE RECORDS SUMMARY | 2024-02-01 07:47 | XMS_ITS ---
Author Organization [facility] Address [address] [place] [address] Care Team Providers Care Mr Teacher Name Role Phone BRDAY JACOME Primary Care Provider Serjio Winters [phone] REASON FOR VISIT ov recall Encounters Encounter Location Date Provider Diagnosis [facility] [address] [place] [address] 09/17/2022 Serjio Richey PLAN OF TREATMENT Next Appt Details Provider Name:Serjio Richey , 01/17/2025 09:00:00 AM, [address], [address], [place], [address],
--- OUTSIDE RECORDS SUMMARY | 2024-02-01 07:48 | XMS_ITS ---
[facility] Organization [facility] Address [address] [place] [address] [address] [place] [address] Care Team Providers Care Pole Maker Name Role Phone BAO JACOMEMAD Primary Care Provider Allergies No Known Allergies REASON FOR VISIT CPE Medications Medication SIG (Take, Route, Frequency, Duration) Notes Start Date End Date Status Cialis 10 MG 1 tablet as needed O rally Once a day for 30 day(s) 11/27/2021 Active Metoprolol Tartrate 25 MG 3 tablet with food Orally once a day for 30 days Active Wellbutrin SR 150 MG 1 tablet in the mor rod Orally Once a day for 30 days 11/30/2022 Active Nicotine 14 MG/24HR 1 patch to skin Transdermal Once a day for 30 day(s) 11/27/2021 Active Social History Tobacco Use: Social History Observation Description Date Details (start date - stop date) Current Smoker NA - NA Tobacco Use/Smoking Question Answer Notes Are you a current smoker How many cigarettes a day do you smoke? 5 or les s Alcohol Screen (Audit-C) Question Answer Notes Did you have a drink contain ing alcohol in the past year? Yes How often did you have a dri nk containing alcohol in the past year? 2 to 3 times a week (3 points) How many drinks did you have on a typical day when you were drinking in the past year? 5 or 6 drinks (2 points) Points 5 Interpretation Positive Vital Signs Temperature 98.7 degrees Fahrenheit 12/01/19 23 Oximetry 98 % 11/30/2022 Heart Rate 78 /min 11/30/2022 Blood pressure systolic 128 mm Hg 12/01/19 23 Blood pressure diastolic 80 mm Hg 023 Weight 170 lbs 11/30/2022 BMI 25.1 kg/m2 11/30/2022 Height 69 in 11/30/2022 Encounters Encounter Location Date Provider Diagnosis [facility] [address] [facility] [address] [place] [address] 11/30/2022 BRADY JACOME Essential (primary) hypertension I10 ; Encounter for general adult medical examination without abnormal findings Z00.00 ; Major depressive disorder, single episode, unspecified F32.9 ; Nicotine dependence, cigarettes, uncomplicated F17.210 ; Hemochromatosis, unspecified E83.119 ; Male erectile disorder F52.21 and Mixed hyperlipidemia E78.2 Assessments Encounter Date Diagnosis (ICD Code) Assessment Notes Treatment Notes Treatment Clinical Notes Section Notes 11/30/2022 Essential (primary) hypertension (ICD-10 - I10) Mr. Martinez is a 62-year-old gentleman with hemochromatosis and gets phlebotomies every 6 weeks, erectile dysfunction, hypertension and nicotine dependence here for annual physical. Plan is as follows: MDD. He had been taking Lexapro, but he quit a few days ago due to diarrhea. Switch to Wellbutrin 150 MG in the morning once a day. Hypertension. His blood pressure is within reasonable limits. Continue current regimen. Continue Metoprolol 25 MG. EKG is normal sinus rhythm at 61 bpm with no acute ST or T wave changes, normal intervals, no bundle-branch block Hyperlipidemia. Dietary restrictions, regimental exercise and weight loss advised. Check lipid panel. Hemochromatosis. He goes to [facility] and gets phlebotomies every [address] Richey Male erectile disorder. Continue Cialis 10 MG as needed. Nicotine dependence. He started on nicotine patch recently. Smoking cessation advised. Eye screening. He sees his third hand at least once a year. He wears prescription glasses at this point. Dental screening. He sees dentist regularly. Age-specific screenings. He had his colonoscopy in 2020 and is on a 5-year cycle. Immunizations. He is up to date on his vaccinations. Blood work reviewed with patient and questions answered. General health concerns discussed with patient. Screening blood work before next appointment. 11/30/2022 Encounter for general adult medical examination without abnormal findings (ICD-10 - Z00.00) Mr. Martinez is a 62-year-old gentleman with hemochromatosis and gets phlebotomies every 6 weeks, erectile dysfunction, hypertension and nicotine dependence here for annual physical. Plan is as follows: MDD. He had been taking Lexapro, but he quit a few days ago due to diarrhea. Switch to Wellbutrin 150 MG in the morning once a day. Hypertension. His blood pressure is within reasonable limits. Continue current regimen. Continue Metoprolol 25 MG. EKG is normal sinus rhythm at 61 bpm with no acute [address] or T wave changes, normal intervals, no bundle-branch block Hyperlipidemia. Dietary restrictions, regimental exercise and weight loss advised. Check lipid panel. Hemochromatosis. He goes to [facility] and gets phlebotomies every [address] Richey Male erectile disorder. Continue Cialis 10 MG as needed. Nicotine dependence. He started on nicotine patch recently. Smoking cessation advised. Eye screening. He sees his third hand at least once a year. He wears prescription glasses at this point. Dental screening. He sees dentist regularly. Age-specific screenings. He had his colonoscopy in 2020 and is on a 5-year cycle. Immunizations. He is up to date on his vaccinations. Blood work reviewed with patient and questions answered. General health concerns discussed with patient. Screening blood work before next appointment. 11/30/2022 Major depressive disorder, single episode, unspecified (ICD-10 - F32.9) Mr. Martinez is a 62-year-old gentleman with hemochromatosis and gets phlebotomies every 6 weeks, erectile dysfunction, hypertension and nicotine dependence here for annual physical. Plan is as follows: MDD. He had been taking Lexapro, but he quit a few days ago due to diarrhea. Switch to Wellbutrin 150 MG in the morning once a day. Hypertension. His blood pressure is within reasonable limits. Continue current regimen. Continue Metoprolol 25 MG. EKG is normal sinus rhythm at 61 bpm with no acute ST or T wave changes, normal intervals, no bundle-branch block Hyperlipidemia. Dietary restrictions, regimental exercise and weight loss advised. Check lipid panel. Hemochromatosis. He goes to [facility] [place] and gets phlebotomies every [address] Richey Male erectile disorder. Continue Cialis 10 MG as needed. Nicotine dependence. He started on nicotine patch recently. Smoking cessation advised. Eye screening. He sees his third hand at least once a year. He wears prescription glasses at this point. Dental screening. He sees dentist regularly. Age-specific screenings. He had his colonoscopy in 2020 and is on a 5-year cycle. Immunizations. He is up to date on his vaccinations. Blood work reviewed with patient and questions answered. General health concerns discussed with patient. Screening blood work before next appointment. 11/30/2022 Nicotine dependence, cigarettes, uncomplicated (ICD-10 - F17.210) Mr. Martinez is a 62-year-old gentleman with hemochromatosis and gets phlebotomies every 6 weeks, erectile dysfunction, hypertension and nicotine dependence here for annual physical. Plan is as follows: MDD. He had been taking Lexapro, but he quit a few days ago due to diarrhea. Switch to Wellbutrin 150 MG in the morning once a day. Hypertension. His blood pressure is within reasonable limits. Continue current regimen. Continue Metoprolol 25 MG. EKG is normal sinus rhythm at 61 bpm with no acute ST or T wave changes, normal intervals, no bundle-branch block Hyperlipidemia. Dietary restrictions, regimental exercise and weight loss advised. Check lipid panel. Hemochromatosis. He goes to [facility] [place] and gets phlebotomies every [address] Richey Male erectile disorder. Continue Cialis 10 MG as needed. Nicotine dependence. He started on nicotine patch recently. Smoking cessation advised. Eye screening. He sees his third hand at least once a year. He wears prescription glasses at this point. Dental screening. He sees dentist regularly. Age-specific screenings. He had his colonoscopy in 2020 and is on a 5-year cycle. Immunizations. He is up to date on his vaccinations. Blood work reviewed with patient and questions answered. General health concerns discussed with patient. Screening blood work before next appointment. 11/30/2022 Hemochromatosis, unspecified (ICD-10 - E83.119) Mr. Martinez is a 62-year-old gentleman with hemochromatosis and gets phlebotomies every 6 weeks, erectile dysfunction, hypertension and nicotine dependence here for annual physical. Plan is as follows: MDD. He had been taking Lexapro, but he quit a few days ago due to diarrhea. Switch to Wellbutrin 150 MG in the morning once a day. Hypertension. His blood pressure is within reasonable limits. Continue current regimen. Continue Metoprolol 25 MG. EKG is normal sinus rhythm at 61 bpm with no acute ST or T wave changes, normal intervals, no bundle-branch block Hyperlipidemia. Dietary restrictions, regimental exercise and weight loss advised. Check lipid panel. Hemochromatosis. He goes to [place] and gets phlebotomies every [address] Richey Male erectile disorder. Continue Cialis 10 MG as needed. Nicotine dependence. He started on nicotine patch recently. Smoking cessation advised. Eye screening. He sees his third hand at least once a year. He wears prescription glasses at this point. Dental screening. He sees dentist regularly. Age-specific screenings. He had his colonoscopy in 2020 and is on a 5-year cycle. Immunizations. He is up to date on his vaccinations. Blood work reviewed with patient and questions answered. General health concerns discussed with patient. Screening blood work before next appointment. 11/30/2022 Male erectile disorder (ICD-10 - F52.21) Mr. Martinez is a 62-year-old gentleman with hemochromatosis and gets phlebotomies every 6 weeks, erectile dysfunction, hypertension and nicotine dependence here for annual physical. Plan is as follows: MDD. He had been taking Lexapro, but he quit a few days ago due to diarrhea. Switch to Wellbutrin 150 MG in the morning once a day. Hypertension. His blood pressure is within reasonable limits. Continue current regimen. Continue Metoprolol 25 MG. EKG is normal sinus rhythm at 61 bpm with no acute ST or T wave changes, normal intervals, no bundle-branch block Hyperlipidemia. Dietary restrictions, regimental exercise and weight loss advised. Check lipid panel. Hemochromatosis. He goes to [place] and gets phlebotomies every [address] Richey Male erectile disorder. Continue Cialis 10 MG as needed. Nicotine dependence. He started on nicotine patch recently. Smoking cessation advised. Eye screening. He sees his third hand at least once a year. He wears prescription glasses at this point. Dental screening. He sees dentist regularly. Age-specific screenings. He had his colonoscopy in 2020 and is on a 5-year cycle. Immunizations. He is up to date on his vaccinations. Blood work reviewed with patient and questions answered. General health concerns discussed with patient. Screening blood work before next appointment. 11/30/2022 Mixed hyperlipidemia (ICD-10 - E78.2) Mr. Martinez is a 62-year-old gentleman with hemochromatosis and gets phlebotomies every 6 weeks, erectile dysfunction, hypertension and nicotine dependence here for annual physical. Plan is as follows: MDD. He had been taking Lexapro, but he quit a few days ago due to diarrhea. Switch to Wellbutrin 150 MG in the morning once a day. Hypertension. His blood pressure is within reasonable limits. Continue current regimen. Continue Metoprolol 25 MG. EKG is normal sinus rhythm at 61 bpm with no acute ST or T wave changes, normal intervals, no bundle-branch block Hyperlipidemia. Dietary restrictions, regimental exercise and weight loss advised. Check lipid panel. Hemochromatosis. He goes to [place] and gets phlebotomies every [address] Richey Male erectile disorder. Continue Cialis 10 MG as needed. Nicotine dependence. He started on nicotine patch recently. Smoking cessation advised. Eye screening. He sees his third hand at least once a year. He wears prescription glasses at this point. Dental screening. He sees dentist regularly. Age-specific screenings. He had his colonoscopy in 2020 and is on a 5-year cycle. Immunizations. He is up to date on his vaccinations. Blood work reviewed with patient and questions answered. General health concerns discussed with patient. Screening blood work before next appointment. Plan Of Treatment Medication Medication Name Sig Start Date Stop Date Notes Cialis 10 MG 1 tablet as needed O rally Once a day for 30 day(s) 11/27/2021 Metoprolol Tartrate 25 MG 3 tablet with food Orally once a day for 30 days Wellbutrin SR 150 MG 1 tablet in the mor rod Orally Once a day for 30 days 11/30/2022 Future Test Test Name Order Date LIPID PANEL 11/30/2022 Next Appt Details Follow Up: 4 Weeks, Reason: Progress Notes * Roberto MARTINEZDOB:1960 ( 62 yo M)Acc No.[id number]:11/30/2022 Progress Notes Patient:Roberto Gardner Provider:?BRADY JACOME MD :1960???Age:62 Y???Sex:Male Jermain e:11/30/2022 Address:[place], [id number] Subjective: * Chief Complaints: * ???CPE * HPI: ???Depression Screening:?PHQ-9?Little interest or pleasure in doing things?Several days ?Feeling down, depressed, or hopeless?Not at all ?Trouble falling or staying asleep, or sleeping too much?Several days ?Feeling tired or having little energy?Several days ?Poor appetite or overeating?Not at all ?Feeling bad about yourself or that you are a failure, or have let yourself or your family down?Not at all ?Trouble concentrating on things, such as reading the newspaper or watching television?Not at all ?Moving or speaking so slowly that other people could have noticed; or the opposite, being so fidgety or restless that you have been moving around a lot more than usual?Several days ?Thoughts that you would be better off or of hurting yourself in some way?Not at all ?Total Score?4 ?Interpretation?Minimal Depression ???Internal Medicine:? Mr. Martinez is a 62-year-old gentleman with hemochromatosis and gets phlebotomies every 6 weeks, erectile dysfunction, hypertension and nicotine dependence here for annual physical. He had a recent liver US at [facility] which showed fatty liver. He had been taking Lexapro, but he quit a few days ago due to diarrhea. He is still currently smoking but has cut back. He drinks about 12 beers a week on average. He denies any other active issues or concerns. * ROS:?General/Constitutional:?Overall health?Good.?Change in appetite?denies.?Chills?denies.?Fever?denies.?Night sweats?denies.?Sleep disturbance?denies.?Weight gain?denies.?Weight loss?denies.?Neurologic:?Difficulty speaking?denies.?Dizziness?denies.?Gait abnormality?denies.?Headache?denies.?Loss of strength?denies.?Memory loss?denies.?Seizures?denies.?Tingling/Numbness?denies ?.?Ophthalmologic:?Blurred vision?denies.?Discharge?denies.?Dry eye?denies.?Red eye?denies.?ENT:?Change in Voice?Denies.?Cold Symptoms?Denies.?Cough?Denies.?Dizziness?Denies.?Nasal Congestion?Denies.?Otalgia?Denies.?postnasal drip?Denies.?Blocked ear?denies.?Nosebleed?denies.?Snoring?denies.?Cardiovascular:?Diaphoresis?Denies.?Pedal Edema?Denies.?PND (Paroxsymal nocturnal dyspnea)?Denies.?Chest pain?denies.?Difficulty laying flat?denies.?Dyspnea on exertion?denies.?Heart murmur?denies.?Orthopnea?denies.?Respiratory:?Snoring?denies.?Asthma?denies.?Cough?denies.?Shortness of breath with exertion?denies.?Sputum production?denies.?Wheezing?denies.?Gastrointestinal:?Change in bowel habits?denies.?Constipation?denies.?Decreased appetite?denies.?Diarrhea?denies.?Heartburn?denies.?Nausea?denies.?Vomiting?quyen es.?Musculoskeletal:?tingling/numbness?Denies.?myalgias?Denies.?Joint Swelling?Denies.?extremeties?normal.?Arthritis?denies.?Back problems?denies.?Carpal tunnel?denies.?Joint stiffness?denies.?Muscle aches?denies.?Endocrine:?Bowel Changes?Denies.?Breast Discharge?Denies.?poor libido?Denies.?Cold intolerance?denies.?Excessive sweating?denies.?Excessive thirst?denies.?Frequent urination?denies.?Thyroid problems?denies.?Skin:?Bruising?Denies.?Eczema?denies.?Hair changes?denies.?Rash?denies.?Skin lesion(s)?denies.?Psychiatric:?Anxiety?denies.?Difficulty sleeping?denies.?Nervous breakdown?denies.?Substance abuse?denies.?Urology:?abnormal menstrual bleeding?denies.?blood in urine?denies.?burning on urination?denies.?difficulty urinating?denies.?discharge?denies.?dysuria?denies.? * Medical History:? * Surgical History:?right anai porras surgery * Hospitalization/Major Diagno stic Procedure:?Denies Past Hospitalization * Family History:?Siblings: He mochromatosis.?Non-Contributory.? * Social History:?Tobacco Use:?Tobacco Use/Smoking?Are you a?current smoker ?How many cigarettes a day do you smoke??5 or less ???Drugs/Alcohol:?Alcohol Screen (Audit-C)?Did you have a drink containing alcohol in the past year??Yes ?How often did you have a drink containing alcohol in the past year??2 to 3 times a week (3 points) ?How many drinks did you have on a typical day when you were drinking in the past year??5 or 6 drinks (2 points) ?Points?5 ?Interpretation?Positive ???Miscellaneous:?Exercise: no. ?Marital status: . ?Occupation: Works full-time, Construction. * Medications:?TakingMetoprolo l Tartrate 25 MG Tablet 3 tablet with food Orally once a day Cialis 10 MG Tablet 1 tablet as needed Orally Once a day Nicotine 14 MG/24HR Patch 24 Hour 1 patch to skin Transdermal Once a day Taking Metoprolol Tartrate 25 MG Tablet 3 tablet with food Orally once a day Taking Cialis 10 MG Tablet 1 tablet as needed Orally Once a day Taking Nicotine 14 MG/24HR Patch 24 Hour 1 patch to skin Transdermal Once a day DiscontinuedEscitalopram Oxalate 10 MG Tablet 1 tablet Orally Once a day Nicoderm CQ 7 MG/24HR Patch 24 Hour 1 patch to skin Transdermal Once a day Medication List reviewed and reconciled with the patientDiscontinued Escitalopram Oxalate 10 MG Tablet 1 tablet Orally Once a day Discontinued Nicoderm CQ 7 MG/24HR Patch 24 Hour 1 patch to skin Transdermal Once a day Medication List reviewed and reconciled with the patient * Allergies:?N.K.D.A.no[Allerg ies Verified] Objective: * Vitals:?Temp:98.7F, Oxygen s at %:98%, HR:78/min, BP: 146/80 mm Hg,128/80mm Hg, Wt:170lbs, BMI:25.1Index, Ht: 69 in. * Examination: ???General Examination: ?Psychiatry?Normal.?GENERAL APPEARANCE:?Well developed, well nourished, in no acute distress.?MUSCULOSKELETAL:?Normal.?HEAD:?Normocephalic, atraumatic.?EYES:?Pupils equal, round, reactive to light and accommodation, sclera non-icteric.?EARS:?Normal.?ORAL CAVITY:?Normal.?THROAT:?Clear.?OROPHARYNX?Normal.?SINUSES?Normal.?NECK/THYROID:?Neck supple, full range of motion, no cervical lymphadenopathy.?SKIN:?Warm and dry, no suspicious lesions.?HEART:?Normal.?LUNGS:?Normal.?BREASTS:?__.?ABDOMEN:?Soft, nontender, nondistended, bowel sounds present, normal.?EXTREMITIES:?Normal.?PERIPHERAL PULSES:?Normal.?NEUROLOGIC:?Nonfocal,? appropriate?motor strength normal upper and lower extremities, sensory exam intact.?FEMALE GENITOURINARY:?__.?MALE GENITOURINARY:?no hernia, no hydrocele, no penile lesions or discharge, no testicular mass, prostate normal,?skin tag present.?PODIATRIC:?Normal.?Metalizing Supervisor? .? Assessment: * Assessment: 1.?Encounter for general mellissa lt medical examination without abnormal findings - Z00.00 (Primary)?2.?Essential (primary) hypertension - I10?3.?Major depressive disorder, single episode, unspecified - F32.9?4.?Nicotine dependence, cigarettes, uncomplicated - F17.210?5.?Hemochromatosis, unspecified - E83.119?6.?Male erectile disorder - F52.21?7.?Mixed hyperlipidemia - E78.2? Mr. Martinez is a 62[facility] with hemochromatosis and gets phlebotomies every 6 weeks, erectile dysfunction, hypertension and nicotine dependence here for annual physical. Plan is as follows: MDD. He had been taking Lexapro, but he quit a few days ago due to diarrhea. Switch to Wellbutrin 150 MG in the morning once a day. Hypertension. His blood pressure is within reasonable limits. Continue current regimen. Continue Metoprolol 25 MG. EKG is normal sinus rhythm at 61 bpm with no acute ST or T wave changes, normal intervals, no bundle-branch block Hyperlipidemia. Dietary restrictions, regimental exercise and weight loss advised. Check lipid panel. Hemochromatosis. He goes to [place] and gets phlebotomies every [address] Richey Male erectile disorder. Continue Cialis 10 MG as needed. Nicotine dependence. He started on nicotine patch recently. Smoking cessation advised. Eye screening. He sees his third hand at least once a year. He wears prescription glasses at this point. Dental screening. He sees dentist regularly. Age-specific screenings. He had his colonoscopy in 2020 and is on a 5-year cycle. Immunizations. He is up to date on his vaccinations. Blood work reviewed with patient and questions answered. General health concerns discussed with patient. Screening blood work before next appointment. Plan: * Treatment: 2.?Male erectile disorder? Refill Cialis Tablet, 10 MG, 1 tablet as needed, Orally, Once a day, 30 day(s), 9, Refills 2.?? 3.?Mixed hyperlipidemia?LAB: LIPID PANEL (Ordered for 11/30/2022) 4.?Others? Refill Metoprolol Tartrate Tablet, 25 MG, 3 tablet with food, Orally, once a day, 30 days, 90 Tablet, Refills 6.?? * Procedure Codes:?05779 ELECT ROCARDIOGRAM, COMPLETE * Follow Up:?4 Weeks * Images: * Sign off status: Completed true * Provider:?BRADY JACOME MD Date:?11/30 Generated for Claudia urrutia/Leslee/Bonillaitting on:?02/01/2024 07:47 AM EST History and Physical Notes * HPI (History of Present Illness) Category Sub-Category Detail Notes Category Not es Depression Screening PHQ-9 Little inte rest or pleasure in doing things: Several days Feeling down, depressed, or hopeless: No t at all Trouble falling or staying asleep, or sl eeping too much: Several days Feeling tired or having little energy: S everal days Poor appetite or overeating: Not at all Feeling bad about yourself o r that you are a failure, or have let yourself or your family down: Not at all Trouble concentrating on thi ngs, such as reading the newspaper or watching television: Not at all Moving or speaking so slowly that other people could have noticed; or the opposite, being so fidgety or restless that you have been moving around a lot more than usual: Several days Thoughts that you would be b tonia off or of hurting yourself in some way: Not at all Total Score: 4 Interpretation: Minimal Depression Internal Medicine Mr. Juan reynoso s a 62-year-old gentleman with hemochromatosis and gets phlebotomies every 6 weeks, erectile dysfunction, hypertension and nicotine dependence here for annual physical. He had a recent liver US at [facility] which showed fatty liver. He had been taking Lexapro, but he quit a few days ago due to diarrhea. He is still currently smoking but has cut back. He drinks about 12 beers a week on average. He denies any other active issues or concerns. Examination Category Sub-Category Detail Notes Category Not es General Examination GENERAL APPEARANCE: Well dev eloped, well nourished, in no acute distress HEAD: Normocephalic, atrau matic EYES: Pupils equal, round, reactive to light and accommodation, sclera non-icteric EARS: Normal THROAT: Clear NECK/THYROID: Neck supple, full ra nge of motion, no cervical lymphadenopathy HEART: Normal LUNGS: Normal ABDOMEN: Soft, nontender, non distended, bowel sounds present, normal NEUROLOGIC: Nonfocal, appropriat e motor strength normal upper and lower extremities, sensory exam intact SKIN: Warm and dry, no georgia picious lesions EXTREMITIES: Normal PERIPHERAL PULSES: Normal BREASTS: __ MUSCULOSKELETAL: Normal MALE GENITOURINARY: no hernia, no hydroc ruben, no penile lesions or discharge, no testicular mass, prostate normal, skin tag present FEMALE GENITOURINARY: __ ORAL CAVITY: Normal PODIATRIC: Normal Psychiatry Normal OROPHARYNX Normal SINUSES Normal Metalizing Supervisor
--- OUTSIDE RECORDS SUMMARY | 2024-02-01 07:48 | XMS_ITS | Patient Health Record ---
Author Organization [facility] Address [address] [place] [address] Care Team Providers Care Assembly Leader Name Role Phone BRADY JACOME Primary Care Provider Allergies No Known Allergies Reason For Referral No Information Medications Medication SIG (Take, Route, Frequency, Duration) Notes Start Date End Date Status Nicotine 14 MG/24HR 1 patch to skin Transdermal Once a day for 30 day(s) 11/27/2021 Active Cialis 10 MG 1 tablet as needed O rally Once a day for 30 day(s) 11/27/2021 Active Metoprolol Tartrate 25 MG 3 tablet with food Orally once a day for 30 days Active Wellbutrin SR 150 MG 1 tablet in the mor rod Orally Once a day for 30 days 11/30/2022 Active Immunizations Vaccine Route Administration Date Status Comme nts COVID Moderna Unknown 01/28/2021 Administered Shingrix Unknown 01/28/2021 Administered Social History Tobacco Use: Social History Observation [...] drinks (2 points) Points 5 Interpretation Positive Problems Problem Type SNOMED Code ICD Code Onset Dates Problem Status W/U Status Risk Notes Problem Mixed hyperlipidemia (702804039) Mixed hyperlipidemia (E78.2) Active confirmed Problem Hemochromatosis (712653136) Hemochromatosis, unspecified (E83.119) Active confirmed Problem Tobacco user (324586663) Nicotine dependence, cigarettes, uncomplicated (F17.210) Active confirmed Problem Major depression, single episode (00216629) Major depressive disorder, single episode, unspecified (F32.9) Active confirmed Problem Male erectile disorder (157558516) Male erectile disorder (F52.21) Active confirmed Problem Essential hypertension (60078998) Essential (primary) hypertension (I10) Active confirmed Plan Of Treatment Future Test Test Name Order Date LIPID PANEL 11/30/2022 Insurance Providers Payer Name Payer Address Payer Phone Subscriber Number Group Number Insured Name Patient Relationship to Insured Coverage Start Date Coverage End Date [facility] [address] [place] [id number] Roberto Martinez Self - patient is the insured Medical (General) History Medical History History ICD Code Nicotine dependence Hypertension hemochromatosis and gets phlebotomies fatemeh barlow 6 weeks, sees Dr. Richey Erectile dysfunction Surgical History Surgery Date(Month/Year) right shoulder surgery
[2024-02-01 07:57] LABS: MANUAL DIFF FLAG NO
[2024-02-01 08:28] LABS: Basophils Percent Auto 0.7 % (0-2); Eosinophils Absolute Auto 0.1 X10*3/uL (0.0-0.4); Eosinophils Percent Auto 2.4 % (0-4); Hematocrit 45.6 % (42.0-52.0); Hemoglobin 15.8 g/dl (14.0-18.0); Imm Gran Abs Auto 0.02 X10*3/uL (0.00-0.03); Imm Gran Pct Auto 0.4 % (0.0-0.4); Lymphocytes Absolute Auto 1.8 X10*3/uL (1.2-4.9); Lymphocytes Percent Auto 33.8 % (20-40); Mean Corpuscular HGB Conc 34.6 g/dl (31.0-36.0); Mean Corpuscular Hemoglobin 32.5 pg (27.0-33.0); Mean Corpuscular Volume 93.8 fL (80.0-98.0); Mean Platelet Volume 9.4 fL (9.4-12.4); Monocytes Absolute Auto 0.7 X10*3/uL (0.1-1.2); Monocytes Percent Auto 12.1 % (2-11); Neutrophils Absolute Auto 2.8 x10*3/uL (2.0-8.3); Neutrophils Percent Auto 50.6 % (45-73); Platelet Count 270 X10*3/uL (160-400); Red Blood Count 4.86 X10*6/uL (4.60-5.80); Red Cell Distribution Width 13.3 % (11.0-16.0); White Blood Count 5.5 X10*3/uL (4.8-10.8)
[2024-02-01 08:40] LABS: Alanine Aminotransferase 22 U/L (0-40); Albumin Level 4.4 g/dL (3.5-5.0); Alkaline Phosphatase 77 U/L (39-117); Aspartate Amino Transferase 27 U/L (5-37); Bilirubin Direct 0.3 mg/dL (0.0-0.5); Bilirubin Total 0.9 mg/dL (0.0-1.0); Total Protein 7.6 g/dL (6.5-8.0)
[2024-02-01 08:50] LABS: INTERNATIONAL NORM RATIO 0.9 (0.9-1.1); Prothrombin Time 10.5 SEC (10.9-12.4)
[2024-02-10 17:28] LABS: FIB-ALT 15 U/L (9-46); FIB-Alpha-2-Macroglobulin 184 mg/dL (106-279); FIB-Apolipoprotein A1 185 mg/dL (94-176); FIB-GGT 39 U/L (3-70); FIB-Haptoglobin 131 mg/dL (43-212); FIB-Total Bilirubin 0.4 mg/dL (0.2-1.2); Liver Fibrosis Score 0.17; Liver Fibrosis Stage F0; Nec Inflam Act Grade A0; Nec Inflam Act Score 0.04; Reference ID 5265524
== END 2024-02-01 07:45 | disposition home or self-care (01) ==
LOC: HO.US 07:44
PROVIDERS: PCP Hospitalist; Visit Provider Internal Medicine
DX: E83.110 Hereditary hemochromatosis (principal)
CPT/HCPCS: 36415; 76700; 76981; 80076; 81596; 82105; 85025; 85610

== ENCOUNTER → 2024-02-01 07:58 | Outpatient (BNV) | payer OTHER, SELFPAY | PROVIDERS: PCP Hospitalist; Visit Provider Radiology Diagnostic Radiology | DX: R16.0 Hepatomegaly, not elsewhere classified (principal); N20.0 Calculus of kidney | CPT/HCPCS: 76700 ==

== ENCOUNTER 2024-05-09 09:49 | Outpatient (REF) | payer OTHER, SELFPAY ==
--- OUTSIDE RECORDS SUMMARY | 2024-05-09 11:07 | XMS_ITS ---
Author Organization [facility] Address [address] [place] [phone] Care Team Providers Care Funeral Assistant Name Role Phone BRADY JACOME Primary Care Provider [phone] REASON FOR VISIT 1 month f/u Encounters Encounter Location Date Provider Diagnosis [facility] [address] [facility] [address] [place] [address] 12/29/2022 BRADY JACOME Plan Of Treatment Next Appt Details Provider Name:BRADY JACOME , 02/25/2025 08:00:00 AM, [address] [place] [address], [place], [address], Progress Notes * Roberto MARTINEZDOB:1960 ( 64 yo M)Acc No.[id number]:12/29/2022 Progress Notes Patient:?Roberto MARTINEZ Provider:?BRADY JACOME MD :1960???Age:62 Y???Sex:Male Jermain e:12/29/2022 Address:[address] [place] [address] [id number] Subjective: * Chief Complaints: * ???1. 1 month f/u. * Medical History:? Objective: * Vitals:? Assessment: Plan: * Treatment: * Images: * Electronic signature of MARCIA JACOME MD on 05/09/2024 at 11:07 AM EDT Sign off status: Pending * Provider:?BRADY JACOME MD Date:?12/29 Generated for Sonami renan/Leslee/eTransmitting on:?05/09/2024 11:07 AM EDT
--- OUTSIDE RECORDS SUMMARY | 2024-05-09 11:08 | XMS_ITS | Clinical Summary ---
Author Organization [facility] Address [address] [place] [address] Phone Care Team Providers Care Data Communications Technician Name Role Phone Maria T Duncan MD Primary Care Provider [phone] Encounters Date Type Department Care Team Description 05/01/2024 10:25 AM EDT - 05/01/2024 11:59 PM EDT Hospital Encounter [facility] CT Scan [address] [place] [address] Encounter for screening for lung cancer; Cigarette smoker Discharge Disposition: Home or Self Care 04/18/2024 Telephone Thoracic Surgery - [place] [address] [phone] Nati Bernard [place] First Notification from Last 3 Months Social History Tobacco Use Types Packs/Day Years Used Date Smoking Tobacco: Never Assessed Sex and Gender Information Value Date Recorded Sex Assigned at Male 05/01/2024 10:23 AM EDT Legal Sex Male 10:19 PM EST Gender Identity Male 05/01/2024 10:23 AM EDT Sexual Orientation Straight 05/01/2024 10 :23 AM EDT Obstetrics History Plan of Treatment Health Maintenance Due Date Last Done Comments DTaP,Tdap,and Td Vaccines (1 - Tdap) 02/12/1980 Pneumococcal Vaccine: 50+ Ye ars (1 of 1 - PCV) 2011 Zoster Vaccines (1 of 2) 2011 Cholesterol Screening (Lipid Panel) 01/16/2022 Colorectal Cancer Screening: Colonoscopy 01/16/2022 Depression Screening 01/16/2022 HIV Screening 01/16/2022 Hepatitis C Screening 01/16/2022 Social Influencers of Health Screening 01/16/2022 COVID-19 Vaccine ( - 2023-2 5 season) 2023 Influenza Vaccine (#1) 2023 RSV Immunization Patients 60 + Years Old (1 - 1-dose 75+ series) 02/12/2036 HIB Vaccines Aged Out No longer eligi ble based on patient's age to complete this topic HPV Vaccines Aged Out No longer eligi ble based on patient's age to complete this topic Hepatitis A Vaccines Aged Out No long er eligible based on patient's age to complete this topic Hepatitis B Vaccines Aged Out No long er eligible based on patient's age to complete this topic IPV Vaccines Aged Out No longer eligi ble based on patient's age to complete this topic MMR Vaccines Aged Out No longer eligi ble based on patient's age to complete this topic Meningococcal ACWY Vaccine Aged Out N o longer eligible based on patient's age to complete this topic Meningococcal B Vacine Aged Out No lo nger eligible based on patient's age to complete this topic Pneumococcal Vaccine: Pediat rics (0 to 5 Years) and At-Risk Patients (6 to 64 Years) Aged Out No longer eligible b ased on patient's age to complete this topic RSV Immunization Patients Un antonio 20 months Aged Out No longer eligible b ased on patient's age to complete this topic Varicella Vaccines Aged Out No longer eligible based on patient's age to complete this topic Procedures Procedure Name Priority Date/Time Associated Diagnosis Comments CT LUNG SCREENING Routine 05/01/2024 10: 42 AM EDT Encounter for screening for lung cancer Cigarette smoker from Last 3 Months Results * CT Lung Screening (05/01/2024 10:42 AM EDT) Anatomical Region Laterality Modality Chest Computed Tomogra phy 05/01/2024 12:1 0 PM EDT Impressions 05/01/2024 12:20 PM EDT Impression: No suspicious developing pulmonary nodule. No significant change. Lung-RADS Category: ??Lung-RADS 2: Nodule(s) with benign appearance or behavior. Continue annual screening with Low Dose Chest CT in 12 months. [facility] MEHUL ([id number]) -------- FINAL REPORT -------- Dictated By: Azul Davis Dictated Date: 05/01/2024 12:10 ET Assigned Physician: Azul Davis Reviewed and Electronically Signed By: Azul Davis Signed Date: 05/01/2024 12:20 ET Workstation ID: [id number] Transcribed By: Self Edit Transcribed Date: 05/01/2024 12:10 ET Narrative 05/01/2024 12:20 PM EDT History: ??64 year-old 44 pack-year current smoker, asymptomatic, for lung cancer screening. Comparison: 03/26/23 Technique: Helical volumetric imaging of the thorax was performed, using low- dose technique, without IV contrast. DLP: 105.87 mGy/cm ??CTDIvol: 2.85 mGy [employer] [place] Iterative reconstruction technique Findings: Lungs and Airways: The trachea and central bronchial tree remain patent. Mild, diffuse bronchial wall thickening is without significant change, consistent with bronchitis in this setting. Rare sub-4 mm solid, noncalcified nodules are without significant change. Flat perifissural nodules in the right middle lobe are unchanged, possibly lymph nodes. No suspicious developing nodule is seen. Pleura: No pleural or pericardial effusions are identified. Base of neck, mediastinum and heart: The heart remains normal in size. Three- vessel coronary artery calcification is again noted. No developing thoracic lymphadenopathy is seen. Soft tissues: The overlying soft tissues are unremarkable. Abdomen: This study was performed without contrast and with lower than standard dose. These factors reduce the sensitivity for detection of small lesions in the upper abdomen. No significant abnormality is seen. Procedure Note Azul Davis MD - 05/01/2024 History: 64 year-old 44 pack-year current smoker, asymptomatic, for lungcancer screening. Comparison: 03/26/23 Technique: Helical volumetric imaging of the thorax was performed, usinglow-dose technique, without IV contrast. DLP: 105.87 mGy/cm CTDIvol: 2.85 mGy [employer] [place] Iterative reconstruction technique Findings: Lungs and Airways: The trachea and central bronchial tree remain patent.Mild, diffuse bronchial wall thickening is without significant change,consistent with bronchitis in this setting. Rare sub-4 mm solid, noncalcified nodules are without significant change.Flat perifissural nodules in the right middle lobe are unchanged, possiblylymph nodes. No suspicious developing nodule is seen. Pleura: No pleural or pericardial effusions are identified. Base of neck, mediastinum and heart: The heart remains normal in size.Three- vessel coronary artery calcification is again noted. No developingthoracic lymphadenopathy is seen. Soft tissues: The overlying soft tissues are unremarkable. Abdomen: This study was performed without contrast and with lower thanstandard dose. These factors reduce the sensitivity for detection of smalllesions in the upper abdomen. No significant abnormality is seen. IMPRESSION: Impression: No suspicious developing pulmonary nodule. No significant change. Lung-RADS Category: Lung-RADS 2: Nodule(s) with benign appearance orbehavior. Continue annual screening with Low Dose Chest CT in 12 months. [place] [place] ([id number]) -------- FINAL REPORT -------- Dictated By: Azul Davis Dictated Date: 05/01/2024 12:10 ET Assigned Physician: Azul Davis Reviewed and Electronically Signed By: Azul Davis Signed Date: 05/01/2024 12:20 ET Workstation ID: [id number] Transcribed By: Self Edit Transcribed Date: 05/01/2024 12:10 ET Chadwick Rodriguez MD IMG CT PROCEDURES Final Result from Last 3 Months Insurance [facility] [address] [place] [phone] Care Teams Data Communications Technician Relationship Specialty Start Date End Date Maria T Duncan MD [address] [place] [phone] PCP - General Internal Medicine 05/01/24
--- OUTSIDE RECORDS SUMMARY | 2024-05-09 11:08 | XMS_ITS | Patient Health Record ---
Author Organization [facility] Address [address] [place] [address] Care Team Providers Care President & [employer] Name Role Phone BRADY JACOME Primary Care Provider Allergies No Known Allergies Results Component Value Reference Range Notes CT LUNG SCREENING Reviewed date:05/01/2024 05:18:17 PM Interpretation: Performing Lab: Notes/Report: Note See Note , a member of [employer] Patient Name: ROBERTO MARTINEZ Date of : 1960 Reason for Exam: Lung cancer screening, >=20 pk yr smoking history in last 15 yrs (Age 50-80y) Exam Date: 05/01/2024 [id number] EST Report Status: Final Ordering Provider: CARINA SILVA PCP: BRADY JACOME History: 64 year-old 44 pack-year current smoker, asymptomatic, for lung cancer screening. Comparison: 03/26/23 Technique: Helical volumetric imaging of the thorax was performed, using low-dose technique, without IV contrast. DLP: 105.87 mGy/cm C TDIvol: 2.85 mGy [employer] Iterative reconstruc tion technique Findings: Lungs and Airways: T he trachea and central bronchial tree remain patent. Mild, diffuse bronchial wall thickening is without significant change, consistent with bronchitis in this setting. Rare sub-4 mm solid, noncalcified nodules are without significant change. Flat perifissural nodules in the right middle lobe are unchanged, possibly lymph nodes. No suspicious develo ping nodule is seen. Pleura: No pleural o r pericardial effusions are identified. Base of neck, medias tinum and heart: The heart remains normal in size. Three-vessel coronary artery calcification is again noted. No developing thoracic lymphadenopathy is seen. Soft tissues: The ov erlying soft tissues are unremarkable. Abdomen: This study was performed without contrast and with lower than standard dose. These factors reduce the sensitivity for detection of small lesions in the upper abdomen. No significant abnormality is seen. IMPRESSION: Impression: No suspicious develo ping pulmonary nodule. No significant change. Lung-RADS Category: Lung-RADS 2: Nodule(s) with benign appearance or behavior. Continue annual screening with Low Dose Chest CT in 12 months. [place] ([id number]) -------- FINAL REPOR T -------- Dictated By: Azul Patel i Dictated Date: 05/01 12:10 ET Assigned Physician: Azul Davis Reviewed and Electro nically Signed By: Azul Davis Signed Date: 025 12:20 ET Workstation ID: [id number] Transcribed By: Self Edit Transcribed Date: 05/01/2024 12:10 ET Reason For Referral No Information Medications Medication SIG (Take, Route, Frequency, Duration) Notes Start Date End Date Status Nicorette 2 MG 1 piece chew for 30 minutes as needed Mouth/Throat every 6 hrs for 30 days 02/23/2024 Active Wellbutrin SR 150 MG 1 tablet in the mor rod Orally Once a day for 30 days Active Metoprolol Tartrate 25 MG 3 tablet with food Orally once a day for 30 days Active Cialis 10 MG 1 tablet as needed O rally Once a day for 30 days 11/27/2021 Active Nicotine 14 MG/24HR 1 patch to skin Transdermal Once a day for 30 day(s) 11/27/2021 Active Immunizations Vaccine Route Administration Date Status Comme nts COVID Moderna Unknown 01/28/2021 Administered Influenza, seasonal, injecta ble (split), for 3 yrs and up Unknown 01/18/2024 Administered Shingrix Unknown 01/28/2021 Administered Social History [...] W/U Status Risk Notes Problem Mixed hyperlipidemia (607039089) Mixed hyperlipidemia (E78.2) Active confirmed Problem Hemochromatosis (967852266) Hemochromatosis, unspecified (E83.119) Active confirmed Problem Tobacco user (896446815) Nicotine dependence, cigarettes, uncomplicated (F17.210) Active confirmed Problem Major depression, single episode (44179130) Major depressive disorder, single episode, unspecified (F32.9) Active confirmed Problem Male erectile disorder (376439151) Male erectile disorder (F52.21) Active confirmed Problem Essential hypertension (77649146) Essential (primary) hypertension (I10) Active confirmed Vital Signs Heart Rate 85 /min 02/23/2024 98.2 Temperature 98.2 degrees Fahrenheit 02/23/2024 98.2 Blood pressure diastolic 80 mm Hg 02/23/2024 98. 2 Oximetry 97 % 02/23/2024 98.2 Height 69 in 02/23/2024 98.2 Blood pressure systolic 130 mm Hg 02/23/2024 98.2 Weight 171.6 lbs 02/23/2024 98.2 BMI 25.34 kg/m2 02/23/2024 98.2 Encounters Encounter Location Date Provider Diagnosis [address] [address] 02/23/2024 BRADY JACOME Encounter for genera l adult medical examination without abnormal findings Z00.00 ; Essential (primary) hypertension I10 ; Major depressive disorder, single episode, unspecified F32.9 ; Male erectile disorder F52.21 ; Nicotine dependence, cigarettes, uncomplicated F17.210 ; Hemochromatosis, unspecified E83.119 and Mixed hyperlipidemia E78.[address] [address] 02/23/2024 BRADY JACOME Assessments Encounter Date Diagnosis (ICD Code) Assessment Notes Treatment Notes Treatment Clinical Notes Section Notes 02/23/2024 Encounter for general adult medical examination without abnormal findings (ICD-10 - Z00.00) Mr. Martinez is a 62-year-old gentleman with hemochromatosis and gets phlebotomies every 6 weeks, erectile dysfunction, hypertension and nicotine dependence here for annual physical. Plan is as follows: MDD. He had been Wellbutrin 150 MG in the morning once a day as symptoms are under control Hypertension. His blood pressure is within reasonable limits. Continue current regimen. Continue Metoprolol 25 MG. EKG is normal sinus rhythm at 64 bpm with no acute ST or T wave changes, normal intervals, no bundle-branch block Hyperlipidemia. Dietary restrictions, regimental exercise and weight loss advised. Check lipid panel. Hemochromatosis. He goes to [facility] and gets phlebotomies every [address] Richey Male erectile disorder. Continue Cialis 10 MG as needed. Nicotine dependence. He started on nicotine gum 2 mg. Advised not to take gum while he is smoking. Smoking cessation advised. Eye screening. He sees his end user consultant at least once a year. He wears prescription glasses at this point. Dental screening. He sees dentist regularly. Age-specific screenings. He had his colonoscopy in 2020 and is on a 5-year cycle. Immunizations. He is up to date on his vaccinations. Blood work ordered General health concerns discussed with patient. Screening blood work before next appointment. 02/23/2024 Essential (primary) hypertension (ICD-10 - I10) Mr. Martinez is a 62-year-old gentleman with hemochromatosis and gets phlebotomies every 6 weeks, erectile dysfunction, hypertension and nicotine dependence here for annual physical. Plan is as follows: MDD. He had been Wellbutrin 150 MG in the morning once a day as symptoms are under control Hypertension. His blood pressure is within reasonable limits. Continue current regimen. Continue Metoprolol 25 MG. EKG is normal sinus rhythm at 64 bpm with no acute ST or T wave changes, normal intervals, no bundle-branch block Hyperlipidemia. Dietary restrictions, regimental exercise and weight loss advised. Check lipid panel. Hemochromatosis. He goes to [facility] and gets phlebotomies every [address] Richey Male erectile disorder. Continue Cialis 10 MG as needed. Nicotine dependence. He started on nicotine gum 2 mg. Advised not to take gum while he is smoking. Smoking cessation advised. Eye screening. He sees his end user consultant at least once a year. He wears prescription glasses at this point. Dental screening. He sees dentist regularly. Age-specific screenings. He had his colonoscopy in 2020 and is on a 5-year cycle. Immunizations. He is up to date on his vaccinations. Blood work ordered General health concerns discussed with patient. Screening blood work before next appointment. 02/23/2024 Major depressive disorder, single episode, unspecified (ICD-10 - F32.9) Mr. Martinez is a 62-year-old gentleman with hemochromatosis and gets phlebotomies every 6 weeks, erectile dysfunction, hypertension and nicotine dependence here for annual physical. Plan is as follows: MDD. He had been Wellbutrin 150 MG in the morning once a day as symptoms are under control Hypertension. His blood pressure is within reasonable limits. Continue current regimen. Continue Metoprolol 25 MG. EKG is normal sinus rhythm at 64 bpm with no acute ST or T wave changes, normal intervals, no bundle-branch block Hyperlipidemia. Dietary restrictions, regimental exercise and weight loss advised. Check lipid panel. Hemochromatosis. He goes to [facility] and gets phlebotomies every [address] Richey Male erectile disorder. Continue Cialis 10 MG as needed. Nicotine dependence. He started on nicotine gum 2 mg. Advised not to take gum while he is smoking. Smoking cessation advised. Eye screening. He sees his end user consultant at least once a year. He wears prescription glasses at this point. Dental screening. He sees dentist regularly. Age-specific screenings. He had his colonoscopy in 2020 and is on a 5-year cycle. Immunizations. He is up to date on his vaccinations. Blood work ordered General health concerns discussed with patient. Screening blood work before next appointment. 02/23/2024 Male erectile disorder (ICD-10 - F52.21) Mr. Martinez is a 62-year-old gentleman with hemochromatosis and gets phlebotomies every 6 weeks, erectile dysfunction, hypertension and nicotine dependence here for annual physical. Plan is as follows: MDD. He had been Wellbutrin 150 MG in the morning once a day as symptoms are under control Hypertension. His blood pressure is within reasonable limits. Continue current regimen. Continue Metoprolol 25 MG. EKG is normal sinus rhythm at 64 bpm with no acute ST or T wave changes, normal intervals, no bundle-branch block Hyperlipidemia. Dietary restrictions, regimental exercise and weight loss advised. Check lipid panel. Hemochromatosis. He goes to [facility] and gets phlebotomies every [address] Richey Male erectile disorder. Continue Cialis 10 MG as needed. Nicotine dependence. He started on nicotine gum 2 mg. Advised not to take gum while he is smoking. Smoking cessation advised. Eye screening. He sees his end user consultant at least once a year. He wears prescription glasses at this point. Dental screening. He sees dentist regularly. Age-specific screenings. He had his colonoscopy in 2020 and is on a 5-year cycle. Immunizations. He is up to date on his vaccinations. Blood work ordered General health concerns discussed with patient. Screening blood work before next appointment. 02/23/2024 Hemochromatosis, unspecified (ICD-10 - E83.119) Mr. Martinez is a 62-year-old gentleman with hemochromatosis and gets phlebotomies every 6 weeks, erectile dysfunction, hypertension and nicotine dependence here for annual physical. Plan is as follows: MDD. He had been Wellbutrin 150 MG in the morning once a day as symptoms are under control Hypertension. His blood pressure is within reasonable limits. Continue current regimen. Continue Metoprolol 25 MG. EKG is normal sinus rhythm at 64 bpm with no acute ST or T wave changes, normal intervals, no bundle-branch block Hyperlipidemia. Dietary restrictions, regimental exercise and weight loss advised. Check lipid panel. Hemochromatosis. He goes to [facility] and gets phlebotomies every [address] Richey Male erectile disorder. Continue Cialis 10 MG as needed. Nicotine dependence. He started on nicotine gum 2 mg. Advised not to take gum while he is smoking. Smoking cessation advised. Eye screening. He sees his end user consultant at least once a year. He wears prescription glasses at this point. Dental screening. He sees dentist regularly. Age-specific screenings. He had his colonoscopy in 2020 and is on a 5-year cycle. Immunizations. He is up to date on his vaccinations. Blood work ordered General health concerns discussed with patient. Screening blood work before next appointment. 02/23/2024 Nicotine dependence, cigarettes, uncomplicated (ICD-10 - F17.210) Mr. Martinez is a 62-year-old gentleman with hemochromatosis and gets phlebotomies every 6 weeks, erectile dysfunction, hypertension and nicotine dependence here for annual physical. Plan is as follows: MDD. He had been Wellbutrin 150 MG in the morning once a day as symptoms are under control Hypertension. His blood pressure is within reasonable limits. Continue current regimen. Continue Metoprolol 25 MG. EKG is normal sinus rhythm at 64 bpm with no acute ST or T wave changes, normal intervals, no bundle-branch block Hyperlipidemia. Dietary restrictions, regimental exercise and weight loss advised. Check lipid panel. Hemochromatosis. He goes to [facility] and gets phlebotomies every [address] Richey Male erectile disorder. Continue Cialis 10 MG as needed. Nicotine dependence. He started on nicotine gum 2 mg. Advised not to take gum while he is smoking. Smoking cessation advised. Eye screening. He sees his end user consultant at least once a year. He wears prescription glasses at this point. Dental screening. He sees dentist regularly. Age-specific screenings. He had his colonoscopy in 2020 and is on a 5-year cycle. Immunizations. He is up to date on his vaccinations. Blood work ordered General health concerns discussed with patient. Screening blood work before next appointment. 02/23/2024 Mixed hyperlipidemia (ICD-10 - E78.2) Mr. Martinez is a 62-year-old gentleman with hemochromatosis and gets phlebotomies every 6 weeks, erectile dysfunction, hypertension and nicotine dependence here for annual physical. Plan is as follows: MDD. He had been Wellbutrin 150 MG in the morning once a day as symptoms are under control Hypertension. His blood pressure is within reasonable limits. Continue current regimen. Continue Metoprolol 25 MG. EKG is normal sinus rhythm at 64 bpm with no acute ST or T wave changes, normal intervals, no bundle-branch block Hyperlipidemia. Dietary restrictions, regimental exercise and weight loss advised. Check lipid panel. Hemochromatosis. He goes to [facility] and gets phlebotomies every [address] Richey Male erectile disorder. Continue Cialis 10 MG as needed. Nicotine dependence. He started on nicotine gum 2 mg. Advised not to take gum while he is smoking. Smoking cessation advised. Eye screening. He sees his end user consultant at least once a year. He wears prescription glasses at this point. Dental screening. He sees dentist regularly. Age-specific screenings. He had his colonoscopy in 2020 and is on a 5-year cycle. Immunizations. He is up to date on his vaccinations. Blood work ordered General health concerns discussed with patient. Screening blood work before next appointment. Plan Of Treatment Future Test Test Name Order Date Albumin/Creatinine Ratio,[id number] Lipid Panel-[id number] 02/23/2024 Comp. Metabolic Panel ([id number] 2024 PSA (Serial Monitor)-[id number] 02/23/2024 Next Appt Details Provider Name:BRADY JACOME , 02/25/2025 08:00:00 AM, [address] [place] [address] [address], [place], [address], Insurance Providers Payer Name Payer Address Payer Phone Subscriber Number Group Number Insured Name Patient Relationship to Insured Coverage Start Date Coverage End Date [facility] [address] [facility] [address] [facility] [place] [phone] [id number] Roberto Martinez Self - patient is the insured Medical (General) History Medical History History ICD Code Nicotine dependence Hypertension hemochromatosis and gets phlebotomies fatemeh barlow 6 weeks, sees Dr. Richey Erectile dysfunction Surgical History Surgery Date(Month/Year) right shoulder surgery
--- OUTSIDE RECORDS SUMMARY | 2024-05-09 11:08 | XMS_ITS ---
Author Organization [facility] Address [address] [place] [address] Care Team Providers Care Program Lead Name Role Phone BRADY JACOME Primary Care Provider Serjio Winters [phone] REASON FOR VISIT needs therapeutic phlebotomy order Encounters Encounter Location Date Provider Diagnosis [facility] [address] [place] [address] 09/09/2023 Serjio Richey Plan Of Treatment Next Appt Details Provider Name:Serjio Richey , 01/17/2025 09:00:00 AM, [address], [address], [place], [address], Progress Notes * ROSETTA POLANCODOB:1960 ( 63 yo M)Acc No.[id number]:09/09/2023 Patient:?ROSETTA POLANCO :1960???Age:63 Y???Sex:Male Address:[address] [place] [address] * true * Date:? Generated for Printi renan/Leslee/eTransmitting on:?05/09/2024 11:08 AM EDT
--- OUTSIDE RECORDS SUMMARY | 2024-05-09 11:08 | XMS_ITS | Encounter Summary ---
Author Organization [facility] Address [address] [place] [address] Care Team Providers Care Credit Resolution Representative Name Role Phone Roberto Gonzales MD Primary Care Provider [phone] Reason for Visit * Reason Onset Date Comments First Notification 04/18/2024 Encounter Details Date Type Department Care Team ([facility] st Contact Info) Description 04/18/2024 Telephone Thoracic Surgery - [address] [place] [address] Nati Bernard MA First Notification Social History Tobacco Use Types Packs/Day Years Used Date Smoking Tobacco: Never Assessed Sex and Gender Information Value Date Recorded Sex Assigned at Male 05/01/2024 10:23 AM EDT Legal Sex Male 10:19 PM EST Gender Identity Male 05/01/2024 10:23 AM EDT Sexual Orientation Straight 05/01/2024 10 :23 AM EDT documented as of this encounter Progress Notes * Nati Bernard MA - 04/18/2024 12:17 PM EST Roberto Martinez was contacted by the Lung Cancer Screening Program today to confirm the appointment of their Lung Cancer Screening. The patient is currently scheduled to have their screening on Tuesday at 11 am at [facility]. For all screenings scheduled during the week, the patient will check in at Patient Registration on the first floor of the main hospital. For screenings that take place on the weekend or after 5pm, check-in directly in Radiology. The patient was given the Lung Cancer Screening Program phone number, , to contact if they have any additional questions, concerns or need to reschedule. Patients are encouraged to call our office and reschedule if they are exhibiting any cold-like symptoms, have recently been treated for Pneumonia or Influenza (the flu) or have had another CT of their Chest since their last screening. Phone rings with no voicemail. Reminder letter mailed today. documented in this encounter Plan of Treatment Not on file documented as of this encounter Visit Diagnoses Not on filedocumented in this encounter Care Teams Credit Resolution Representative Relationship Specialty Start Date End Date Roberto Gonzales MD [address] [place] [address] PCP - General Oncology 08/05/17 04/30/24 documented as of this encounter
--- OUTSIDE RECORDS SUMMARY | 2024-05-09 11:08 | XMS_ITS | Patient Health Record ---
Author Organization [facility] Address [address] [place] [address] Care Team Providers Care Product Line Manager Name Role Phone BRADY DUNCAN Primary Care Provider Serjio Winters [phone] Allergies No Known Allergies Results Component Value Reference Range Notes IRON PROFILE Reviewed date:09/16/2023 11:19:30 PM Interpretation: Performing Lab:[facility], [address] [place] [phone] Notes/Report: Iron 143 45-160 mcg/dL Total Iron Binding Capacity 285 228-428 mcg/dL Percent Iron Saturation 50 15-50 % Unsaturated Iron Binding 142 Ferritin Reviewed date:09/16/2023 11:19:39 PM Interpretation: Performing Lab:[facility], [address] [place] [phone] Notes/Report: Ferritin 22 20-250 ng/mL Therapeutic Phlebotomy Reviewed date:09/17/2023 04:31:48 PM Interpretation: Performing Lab:[facility], [address] [place] [phone] Notes/Report: THER/HGB 13.9 14.0-18.0 g/dL THER/HCT TNP 42.0-52.0 % Therapeutic Phlebotomy Phlebotomy Performed 500 mls drawn on 09/16/23. Please note that a copy of this report has been sent to the Primary Care Physician, the ordering physician and any physician designated by patient request. Complete Blood Count Auto Di ff Reviewed date:02/01/2024 01:50:09 PM Interpretation: Performing Lab:[facility], [address] [place] [phone] Notes/Report: White Blood Count 5.5 4.8-10.8 X10*3/uL Red Blood Count 4.86 4.60-5.80 X10*6/uL Hemoglobin 15.8 14.0-18.0 g/dl Hematocrit 45.6 42.0-52.0 % Mean Corpuscular Volume 93.8 80.0-98.0 fL Mean Corpuscular Hemoglobin 32.5 27.0-33.0 pg Mean Corpuscular HGB Conc 34.6 31.0-36.0 g/dl Red Cell Distribution Width 13.3 11.0-16.0 % Platelet Count 270 160-400 X10*3/uL Mean Platelet Volume 9.4 9.4-12.4 fL Neutrophils Percent Auto 50.6 45-73 % Imm Gran Pct Auto 0.4 0.0-0.4 % Lymphocytes Percent Auto 33.8 20-40 % Monocytes Percent Auto 12.1 2-11 % Eosinophils Percent Auto 2.4 0-4 % Basophils Percent Auto 0.7 0-2 % NRBC Pct Auto 0.0 0.0-0.2 /100WBC Neutrophils Absolute Auto 2.8 2.0-8.3 x10*3/uL Imm Gran Abs Auto 0.02 0.00-0.03 X10*3/uL Lymphocytes Absolute Auto 1.8 1.2-4.9 X10*3/uL Monocytes Absolute Auto 0.7 0.1-1.2 X10*3/uL Eosinophils Absolute Auto 0.1 0.0-0.4 X10*3/uL Basophils Absolute Auto 0.0 0.0-0.2 X10*3/uL NRBC Abs Auto 0.000 0.0-0.012 X10*3/uL Prothrombin Time INR Reviewed date:02/01/2024 01:49:17 PM Interpretation: Performing Lab:[facility], [address] [place] [phone] Notes/Report: Prothrombin Time 10.5 10.9-12.4 SEC INTERNATIONAL NORM RATIO 0.9 0.9-1.1 INTERNATIONAL NORMALIZED RATIO (INR) REFERENCE RANGES Reference Range For patients not on anticoagulant therapy: 0.9 - 1.1 INR ranges for oral anticoagulant therapy: For prevention and treatment of venous thrombosis and pulmonary embolism: 2.0 - 3.0 For acute myocardial infarction with aspirin therapy: 2.0 - 3.0 For acute myocardial infarction without aspirin therapy: 3.0 - 4.0 For patients with mechanical prosthetic heart valves: 2.5 - 3.5 Liver Panel Reviewed date:02/01/2024 01:49:32 PM Interpretation: Performing Lab:[address] [phone] Notes/Report: Bilirubin Total 0.9 0.0-1.0 mg/dL Bilirubin Direct 0.3 0.0-0.5 mg/dL Aspartate Amino Transferase 27 5-37 U/L Alanine Aminotransferase 22 0-40 U/L Total Protein 7.6 6.5-8.0 g/dL Albumin Level 4.4 3.5-5.0 g/dL Alkaline Phosphatase 77 39-117 U/L Alpha Fetoprotein Reviewed date:02/10/2024 09:52:04 PM Interpretation: Performing Lab:[address] [address] Notes/Report: Alpha Fetoprotein 2.0 <6.1 ng/mL This test was performed using the [place] Clear chemiluminescent method. Values obtained from different assay methods cannot be used interchangeably. AFP levels, regardless of value, should not be interpreted as absolute evidence of the presence or absence of disease. THIS TEST WAS PERFORMED AT: [facility] [address] [place] [phone] LOREE ENRIQUEZ MD Liver Fibrosis Pnl Reviewed date:02/10/2024 09:53:28 PM Interpretation: Performing Lab:[address] [phone] Notes/Report: Liver Fibrosis Score 0.17 Liver Fibrosis Stage F0 Liver Fibrosis Interpretation SEE NOTE no fibrosis Fibro Test Score (f) Metavir Score f>=0 and f<=0.21 : F0 (no fibrosis) f>0.21 and f<=0.27 : F0-F1 (no fibrosis) f>0.27 and f<=0.31 : F1 (minimal fibrosis) f>0.31 and f<=0.48 : F1-F2 (minimal fibrosis) f>0.48 and f<=0.58 : F2 (moderate fibrosis) f>0.58 and f<=0.72 : F3 (advanced fibrosis) f>0.72 and f<=0.74 : F3-F4 (advanced fibrosis) f>0.74 and f<=1.00 : F4 (severe fibrosis) Nec Inflam Act Score 0.04 Nec Inflam Act Grade A0 Nec Inflam Act Interpretation SEE NOTE no activity ActiTest Score (a) Metavir Score a>=0 and a<=0.17 : A0 (no activity) a>0.17 and a<=0.29 : A0-A1 (no activity) a>0.29 and a<=0.36 : A1 (minimal activity) a>0.36 and a<=0.52 : A1-A2 (minimal activity) a>0.52 and a<=0.60 : A2 (significant activity) a>0.60 and a<=0.62 : A2-A3 (significant activity) a>0.62 and a<=1.00 : A3 (severe activity) OKG-[id number]-6-Macroglobuli n 184 106-279 mg/dL FIB-Haptoglobin 131 43-212 mg/dL FIB-Apolipoprotein A1 185 94-176 mg/dL FIB-Total Bilirubin 0.4 0.2-1.2 mg/dL FIB-GGT 39 3-70 U/L FIB-ALT 15 9-46 U/L Reference ID [id number] Footnote SEE NOTE The reliability of results is dependent on compliance with the preanalytical and analytical conditions recommended by [employer]. The tests have to be deferred for: acute hemolysis, acute hepatitis, acute inflammation, extra hepatic cholestasis. The advice of a specialist should be sought for interpretation in chronic hemolysis and Gilbert's syndrome. The test interpretation is not validated in liver transplant patients. Isolated extreme values of one of the components should lead to caution in interpreting the results. In case of discordance between a biopsy result and a test, it is recommended to seek the advice of a specialist. The causes of these discordances could be due to a flaw of the test or to a flaw in the biopsy: i.e. a liver biopsy has a 33% variability rate for one fibrosis stage. FibroTest is interpretable for chronic hepatitis B and C, alcoholic and non alcoholic steatosis. ActiTest is interpretable for chronic hepatitis B and C. The performance characteristics have been determined by [employer] [facility]. It has not been cleared or approved by the U.S. Food and Drug Administration. Performance characteristics refer to the analytical performance of the test. [employer], the associated logo, [employer] and all associated [employer] munoz are the registered trademarks of [employer]. All third democrat munoz - (R) and (TM) - are the property of their respective owners. (C) 5783-1957 [employer]. All rights reserved. THIS TEST WAS PERFORMED AT: [employer] [facility] [address] [place] [address] DEISI DYSON MD,PHD,NAT US abdomen comp w elastograp hy (Not yet reviewed by provider) Interpretation: Performing Lab: Notes/Report: [address] [address] Ultrasound Report Signed Patient: Rosetta Martinez MR#: [id number] 8 : 1960 Acct:[id number] Age/Sex: 63 / M ADM Date: 02/01/24 Loc: HO.US Attending Dr: Serjio Richey MD Ordering Physician: Serjio Richey MD Date of Service: 02/01/24 Procedure(s): US abdomen comp w elastography Accession Number(s): [id number] cc: Kade Duncan MD; Serjio Richey MD EXAMINATION: US ABDOMEN COMPLETE WITH LIVER ELASTOGRAPHY HISTORY: HEREDITARY HEMOCHROMATOSIS TECHNIQUE: Real-time grayscale ultrasound imaging of the abdomen was performed and images were reviewed. COMPARISON: Comparison is made with the prior examination dated 10/06/2022. FINDINGS: Liver: The liver is mildly enlarged, and demonstrates increased echotexture, consistent with steatosis. No focal mass or intrahepatic biliary ductal dilatation is identified. There is normal hepatopedal flow in the portal vein. Ultrasound elastography of the liver was performed with 10 separate measurements of the liver parenchyma with the patient in the supine position. Measurements were obtained approximately 2 cm below Everett's capsule and perpendicular to the capsule. Images are of satisfactory quality. The median shear wave velocity is 1.85 m/s (previously 2.37). The interquartile range/median (IQR/median) is 0.05. Gallbladder and biliary tree: The gallbladder is unremarkable, without evidence of calculi, wall thickening, or pericholecystic fluid. There is no sonographic sign. The common bile duct is normal in caliber measuring 4 mm. Kidneys: The right kidney measures 11.4 cm in length. The left kidney measures 11.6 cm in length. There are cysts at the lower pole of the left kidney measuring 5.4 x 2.9 x 2.7 cm and 3.2 x 3.1 x 3.2 cm. The kidneys are otherwise unremarkable, without evidence of solid masses, hydronephrosis, or calculi. Pancreas: The pancreas is obscured by bowel gas. Spleen: The spleen is normal in size and contour, measuring 8.9 cm in length. Abdominal aorta and inferior vena cava: The visualized portions of the abdominal aorta and inferior vena cava are normal in caliber. There is no free fluid in the abdomen. US/US abdomen comp w elastography IMPRESSION: Mild hepatomegaly and hepatic steatosis. The median shear wave velocity is 1.85 m/s, corresponding to a median liver stiffness of 10.25 kPa. The IQR/median value is 0.05. This is indicative of a quality data set. Findings are indicative of a high elastography value suggestive of advanced chronic liver disease. REFERENCE: Society of Radiologists in Ultrasound Liver Stiffness Thresholds (2020): LIVER STIFFNESS THRESHOLDS: *Shear wave velocity less than 1.3 m/s (Liver Stiffness equal or less than 5 kPa): High probability of being normal. *Shear wave velocity less than 1.7 m/s (Liver Stiffness less than 9 kPa): In the absence of other known clinical signs, rules out compensated advanced chronic liver disease. *Shear wave velocity between 1.7-2.1 m/s (Liver Stiffness 9-13 kPa): Suggestive of compensated advanced chronic liver disease but need further test for confirmation. *Shear wave velocity between 2.1-2.4 m/s (Liver Stiffness 13-17 kPa): Rules in compensated advanced chronic liver disease. *Shear wave velocity greater than 2.4 m/s (Liver Stiffness over 17 kPa): Suggestive of clinically significant portal hypertension. QUALITY OF DATA SET: *IQR/Median value equal or less than 0.15 implies a quality data set. *IQR/Median value over 0.15 implies a poor quality data set. SIGNIFICANT CHANGE FROM PRIOR EXAM: Significant change if liver stiffness measurement is 10% or greater from prior exam. OTHER CONSIDERATIONS: The stage of liver fibrosis may be overestimated in the setting of acute hepatitis, liver inflammation, elevated liver function tests, hepatic vascular congestion, obstructive cholestasis, non-fasting state, and infiltrative diseases such as amyloidosis and lymphoma. In some patients with NAFLD, the liver stiffness thresholds for compensated advanced chronic liver disease may be lower. In causes other than viral hepatitis and NAFLD, liver stiffness thresholds are not well established. Electronically signed by: Serjio Linda MD 03/13/2024 09:28 AM EST Dictated By: Serjio Linda MD Signed By: <Electronically signed by Serjio Linda MD in [place]> 03/13/24927 DD/ 9 TD/TT: 02/01/24829 Associate Team Physician: [place] [address] Ultrasound Report Signed Patient: Rosetta Martinze MR#: [id number] 8 : 1960 Acct:[id number] Age/Sex: 63 / M ADM Date: 02/01/24 Loc: HO.US Attending Dr: Serjio Richey MD Ordering Physician: Serjio Richey MD Date of Service: 02/01/24 Procedure(s): US abdomen comp w elastography Accession Number(s): [id number] cc: Kade Duncan MD; Serjio Richey MD EXAMINATION: US ABDO MEN COMPLETE WITH LIVER ELASTOGRAPHY HISTORY: HEREDITARY HEMOCHROMATOSIS TECHNIQUE: Real-time grayscale ultrasound imaging of the abdomen was performed and images were reviewed. COMPARISON: Comparis on is made with the prior examination dated 10/06/2022. FINDINGS: Liver: The liver is mildly enlarged, and demonstrates increased echotexture, consist ent with steatosis. No focal mass or intrahepatic biliary ductal dilatation is identified. There is normal hepatopedal flow in the portal vein. Ultrasound elastogra phy of the liver was performed with 10 separate measurements of the liver parenchyma with the patient in the supine position. Measuremen ts were obtained approximately 2 cm below Everett's capsule an d perpendicular to the capsule. Images are of satisfactory quality. The median shear wav e velocity is 1.85 m/s (previously 2.37). The interquartile range/median (IQR/median) is 0.05. Gallbladder and bili leland tree: The gallbladder is unremarkable, without evidence of calculi, wall thickening, or pericholecystic fluid. There is no sonographic sign. The common bile duct is normal in caliber measuring 4 mm. Kidneys: The right kidney measures 11.4 cm in length. The left kidney measures 11.6 cm in length. There are cysts at the lower pole of the left kidney measurin g 5.4 x 2.9 x 2.7 cm and 3.2 x 3.1 x 3.2 cm. The kidneys are otherwis e unremarkable, without evidence of solid masses, hydronephrosis, or calculi. Pancreas: The pancre as is obscured by bowel gas. Spleen: The spleen i s normal in size and contour, measuring 8.9 cm in length. Abdominal aorta and inferior vena cava: The visualized portions of the abdominal aorta and inferior vena cava are normal in caliber. There is no free flu id in the abdomen. US/US abdomen comp w elastography IMPRESSION: Mild hepatomegaly an d hepatic steatosis. The median shear wav e velocity is 1.85 m/s, corresponding to a median liver stiffness of 10.25 kPa. The IQR/median value is 0.05. This is indicative of a qual ity data set. Findings are indicat charly of a high elastography value suggestive of advanced chronic marco antonio er disease. REFERENCE: Society of Radiologi sts in Ultrasound Liver Stiffness Thresholds (2020): LIVER STIFFNESS THRESHOLDS: *Shear wave velocity less than 1.3 m/s (Liver Stiffness equal or less than 5 kPa): High probability of being normal. *Shear wave velocity less than 1.7 m/s (Liver Stiffness less than 9 kPa): In the absence of other known clinical signs, rules out compensated advanced chronic liver disease. *Shear wave velocity between 1.7-2.1 m/s (Liver Stiffness 9-13 kPa): Suggestive of compensated advanced chronic liver disease but need further test for confirmation. *Shear wave velocity between 2.1-2.4 m/s (Liver Stiffness 13-17 kPa): Rules in compensated advanced chronic liver disease. *Shear wave velocity greater than 2.4 m/s (Liver Stiffness over 17 kPa): Suggestive of clinically significant portal hypertension. QUALITY OF DATA SET: *IQR/Median value eq ual or less than 0.15 implies a quality data set. *IQR/Median value ov er 0.15 implies a poor quality data set. SIGNIFICANT CHANGE F ROM PRIOR EXAM: Significant change i f liver stiffness measurement is 10% or greater from prior exam. OTHER CONSIDERATIONS: The stage of liver fibrosis may be overestimated in the setting of acute hepatitis, marco antonio er inflammation, elevated liver function tests, hepatic vascular congestion, obstructive cholestasis, non-fasting state, and infiltrat charly diseases such as amyloidosis and lymphoma. In some patients with NAFLD, the liver stiffness thresholds for compensated advanced chronic liver disease may be lower. In causes other than viral hepatitis and NAFLD, liver stiffness thresholds are not well established. Electronically safia d by: Serjio Linda MD 03/13/2024 09:28 AM EST Dictated By: Serjio Linda MD Signed By: <Electronically signed by Serjio Linda MD in [place]> 03/13/24927 DD/ 0800 TD/TT: 02/01/24 0830 Associate Team Physician: Reason For Referral No Information Medications Medication SIG (Take, Route, Frequency, Duration) Notes Start Date End Date Status Metoprolol Tartrate 25 MG TAKE 1 TABLET BY MOUTH EVERY DAY Oral for 30 Active Immunizations Vaccine Route Administration Date Status Comme nts Influenza Unknown 06/04/2020 Refused Influenza Unknown 04/15/2021 Refused Influenza Unknown 01/18/2024 Refused Social History Tobacco Use: Social History Observation Description Date Details (start date - stop date) Current Smoker NA - NA Tobacco Use/Smoking Question Answer Notes Patient is [...] Monthly (2 points) Points 7 Interpretation Positive Section Notes: Smoker; drinks 2 6-packs ove r a 1 week period Smoker; drinks between 2 and 4 6-packs over a 1 week period Smoker--trying to quit as of 12/2015; drinks approx. 2 6-packs over a 1 week period Smoker--1-2 packs per week Drinks 4-6 beers approx 3 times per week. He was a heavier drinker until age 41. Smoker--1-2 packs per week Drinks 4-6 beers approx 3 times per week. He was a heavier drinker until age 41. Smoker--1-2 packs per week Drinks 4-6 beers approx 3 times per week. He was a heavier drinker until age 41. Smoker--1-2 packs per week Drinks 4-6 beers approx 3 times per week. He was a heavier drinker until age 41. Problems Problem Type SNOMED Code ICD Code Onset Dates Problem Status W/U Status Risk Notes Problem 269977876 Encounter for screening for malignant neoplasm of colon (Z12.11) Active confirmed Problem 24616149 Hereditary hemochromatosis (E83.110) Active confirmed Problem Screening for malignant neoplasm of rectum (880341526) Encounter for screening for malignant neoplasm of rectum (Z12.12) Active confirmed Problem 818492651 Family history o f colon cancer (Z80.0) Active confirmed Problem Diverticulosis of colon (099598634) Diverticulosis of colon (K57.30) Active confirmed Vital Signs Temperature 97.7 degrees Fahrenheit 01/18/2024 Blood pressure diastolic 00 mm Hg 01/18/2024 Height 71 in 01/18/2024 Blood pressure systolic 000 mm Hg 01/18/2024 Weight 170 lb 6 oz lbs 01/18/2024 BMI 23.76 kg/m2 01/18/2024 Encounters Encounter Location Date Provider Diagnosis [facility] [address] [place] [address] 01/18/2024 Serjio Richey Hereditary hemochromatosis E83.110 ; Family history of colon cancer Z80.0 and Encounter for screening for malignant neoplasm of colon Z12.11 [facility] [address] [place] [address] 09/09/2023 Serjio Richey Assessments Encounter Date Diagnosis (ICD Code) Assessment Notes Treatment Notes Treatment Clinical Notes Section Notes 01/18/2024 Hereditary hemochromatosis (ICD-10 - E83.110) Continue the phlebotomy every 3 months Overall, Victor M appears quite well. He does not show any signs or have any symptoms of progressive liver disease. I did advise him to continue his phlebotomy every 3 months and we'll continue to follow his iron studies every 6 months or so in regard to the underlying hemachromatosi s. I shall schedule him for a followup abdominal ultrasound, alpha-fetoprot ein level, liver fibrosis score, liver profile, CBC with platelet count, and PT with INR. I did advise him that he should have these studies yearly given the underlying chronic liver disease and hemachromatosi s. We also reviewed that he will be due for a followup screening colonoscopy in 2026 given his negative exam and 2021 and reported family history of colon cancer in his sister. If things remain well I will see him in one year for a followup office visit. I advised him to contact me prior to that he has any problems or questions I can be of assistance with. Victor M was comfortable with this plan. Thank you again for allowing me to participate in Victor M's care. I shall continue to keep you advised of his progress. 01/18/2024 Family history of colon cancer (ICD-10 - Z80.0) Repeat colonoscopy in 2026 Overall, Victor M appears quite well. He does not show any signs or have any symptoms of progressive liver disease. I did advise him to continue his phlebotomy every 3 months and we'll continue to follow his iron studies every 6 months or so in regard to the underlying hemachromatosi s. I shall schedule him for a followup abdominal ultrasound, alpha-fetoprot ein level, liver fibrosis score, liver profile, CBC with platelet count, and PT with INR. I did advise him that he should have these studies yearly given the underlying chronic liver disease and hemachromatosi s. We also reviewed that he will be due for a followup screening colonoscopy in 2026 given his negative exam and 2021 and reported family history of colon cancer in his sister. If things remain well I will see him in one year for a followup office visit. I advised him to contact me prior to that he has any problems or questions I can be of assistance with. Victor M was comfortable with this plan. Thank you again for allowing me to participate in Victor M's care. I shall continue to keep you advised of his progress. 01/18/2024 Encounter for screening for malignant neoplasm of colon (ICD-10 - Z12.11) Overall, Victor M appears quite well. He does not show any signs or have any symptoms of progressive liver disease. I did advise him to continue his phlebotomy every 3 months and we'll continue to follow his iron studies every 6 months or so in regard to the underlying hemachromatosi s. I shall schedule him for a followup abdominal ultrasound, alpha-fetoprot ein level, liver fibrosis score, liver profile, CBC with platelet count, and PT with INR. I did advise him that he should have these studies yearly given the underlying chronic liver disease and hemachromatosi s. We also reviewed that he will be due for a followup screening colonoscopy in 2026 given his negative exam and 2021 and reported family history of colon cancer in his sister. If things remain well I will see him in one year for a followup office visit. I advised him to contact me prior to that he has any problems or questions I can be of assistance with. Victor M was comfortable with this plan. Thank you again for allowing me to participate in Victor M's care. I shall continue to keep you advised of his progress. Plan Of Treatment Pending Test Test Name Order Date LIVER PROFILE 04/15/2020 LIVER PROFILE 09/17/2022 LIVER PROFILE 01/05/2012 LIVER PROFILE 01/18/2024 LIVER PROFILE 02/19/2018 LIVER PROFILE 04/15/2021 CBC w DIFF 04/15/2021 CBC w DIFF 04/15/2020 CBC w DIFF 09/17/2022 CBC w DIFF 01/18/2024 PROTHROMBIN TIME (PT, INR) 04/15/2021 PROTHROMBIN TIME (PT, INR) 04/15/2020 ALPHA-FETOPROTEIN,TUMOR MARKER 2 ALPHA-FETOPROTEIN,TUMOR MARKER 3 ALPHA-FETOPROTEIN,TUMOR MARKER 4 ALPHA-FETOPROTEIN,TUMOR MARKER 1 ALPHA-FETOPROTEIN,TUMOR MARKER 4 ALPHA-FETOPROTEIN,TUMOR MARKER 9 US ABD 04/15/2020 HCV LIVER FIBROSIS, FIBRO TEST 2 US ABDOMEN COMP WITH ELASTOGRAPHY 2021 Prothrombin Time INR 01/18/2024 Alpha Fetoprotein 04/15/2021 Liver Fibrosis Pnl 01/18/2024 Liver Fibrosis Pnl 09/17/2022 US abdomen comp w elastography 3 US abdomen comp w elastography 4 US abdomen comp w elastography 4 Future Test Test Name Order Date COLONOSCOPY 01/14/2016 COLONOSCOPY 04/15/2021 Next Appt Details Provider Name:Serjio Richey , 01/17/2025 09:00:00 AM, [address] [facility], [address], [place], [address], Insurance Providers Payer Name Payer Address Payer Phone Subscriber Number Group Number Insured Name Patient Relationship to Insured Coverage Start Date Coverage End Date [employer] [address] [place] [phone] [id number] [place] Self - patient is the insured 9 9 Medical (General) History Medical History History ICD Code Colonoscopy 12/17/2009-hyperplastic [...] normal iron saturation and ferritin level. Denies SD,DM,CVA,Lung disease,renal dise ase HTN Neg. colonoscopy in 03/2016 Negative screening colonoscopy in May of 2021 Surgical History Surgery Date(Month/Year) Right shoulder
--- OUTSIDE RECORDS SUMMARY | 2024-05-09 11:08 | XMS_ITS ---
Author Organization [facility] Address [address] [place] [address] Care Team Providers Care Dog Hair Clipper Name Role Phone BRADY JACOME Primary Care Provider Serjio Winters [phone] Allergies No Known Allergies REASON FOR VISIT Patient presents today for hemochromatosis Medications Medication SIG (Take, Route, Frequency, Duration) Notes Start Date End Date Status Metoprolol Tartrate 25 MG TAKE 1 TABLET BY MOUTH EVERY DAY Oral for 30 Active Immunizations Vaccine Route Administration Date Status Comme nts Influenza Unknown 01/18/2024 Refused Social History Tobacco [...] points) Points 7 Interpretation Positive Section Notes: Smoker--1-2 packs per week Drinks 4-6 beers approx 3 times per week. He was a heavier drinker until age 41. Vital Signs Temperature 97.7 degrees Fahrenheit 01/18/20 24 Blood pressure systolic 000 mm Hg 01/18/20 24 Blood pressure diastolic 00 mm Hg 024 Height 71 in 01/18/2024 Weight 170 lb 6 oz lbs 01/18/2024 BMI 23.76 kg/m2 01/18/2024 Encounters Encounter Location Date Provider Diagnosis [facility] [address] [place] [address] 01/18/2024 Serjio Richey Hereditary hemochromatosis E83.110 ; Family history of colon cancer Z80.0 and Encounter for screening for malignant neoplasm of colon Z12.11 Assessments Encounter Date Diagnosis (ICD Code) Assessment [...] advised of his progress. Plan Of Treatment Treatment Notes Assessment Notes Hereditary hemochromatosis Continue the phlebotomy every 3 months Family history of colon cancer Repeat co lonoscopy in 2026 Pending Test Test Name Order Date LIVER PROFILE 01/18/2024 CBC w DIFF 01/18/2024 ALPHA-FETOPROTEIN,TUMOR MARKER 4 Prothrombin Time INR 01/18/2024 Liver Fibrosis Pnl 01/18/2024 US abdomen comp w elastography Next Appt Details Follow Up: 1 Year, Reason: Provider Name:Serjio Larson Richey , 01/17/2025 09:00:00 AM, [address], [address], [place], [address], Progress Notes * ROSETTA POLANCODOB:1960 ( 63 yo M)Acc No.[id number]:01/18/2024 Progress Notes Patient:?ROSETTA POLANCO Provider:?Serjio Richey MD :1960???Age:63 Y???Sex:Male Jermain e:01/18/2024 Address:[address] [place], [place] [id number] Pcp:BRADY JACOME Subjective: * Chief Complaints: * ???Patient presents today fo r hemochromatosis * HPI: ???incontinence:? I saw Victor M in followup today in regard to his underlying history of hereditary hemachromatosis and discussion of colorectal cancer screening in regard to his family history of colon cancer. ?I last saw Victor M in September of 2022. Since that time he has continued having his phlebotomy about every 3 months or so. His most recent phlebotomy was in September and at that time his iron was 143 with an iron saturation of 50% and a ferritin of only 22. He did have an abdominal ultrasound in September of 2022 describing some probable fatty liver but no sign of any mass, biliary disease, splenomegaly, nor ascites. He enjoys a good appetite, without any significant heartburn or dysphagia. His bowel movements have been regular and without any signs of bleeding. He denies abdominal pain, jaundice, weight loss, increasing abdominal girth, edema, pruritus, nor fatigue. * ROS:?General/Constitutional:?Change in appetite?denies.?Chills?denies.?Fatigue?denies.?Ophthalmologic:?Patient denies? Negative..?ENT:?Patient denies?Negative..?Respiratory:?Patient denies?No coughing/hemoptysis..?Cardiovascular:?Patient denies? No chest pain/orthopnea..?Gastrointestinal:?Comments?See HPI for details.?Genitourinary:?Patient denies? No dysuria/hematuria..?Musculoskeletal:?Patient denies? No specific arthralgias/myalgias..?Skin:?Patient denies?No rash/pruritus..?Neurologic:?Patient denies? No headaches/seizures..?Psychiatric:?Patient denies?Negative..? * Medical History:? * Surgical History:?Right anai porras * Hospitalization/Major Diagno stic Procedure:?No Hospitalization History. * Family History:?Father: dece ased, diagnosed with HTN (hypertension).?Mother: .?Siblings: , sister of Colon Cancer in her early 40.? He thinks his sister had colitis--she had colorectal cancer before age 50. No family history of liver cancer. * Social History:?Tobacco Use:?Tobacco Use/Smoking?Patient is a?current smoker,?How often do you smoke cigarettes??some days, but not every day,?How many cigarettes a day do you smoke??5 or less,?How soon after you wake up do you smoke your first cigarette??after 60 minutes,?Are you interested in quitting??Ready to quit.?Drugs/Alcohol:?Alcohol Screen?Did you have a drink containing alcohol in the past year??Yes,?How often did you have a drink containing alcohol in the past year??4 or more times a week (4 points),?How many drinks did you have on a typical day when you were drinking in the past year??3 or 4 drinks (1 point),?How often did you have 6 or more drinks on one occasion in the past year??Monthly (2 points),?Points?7,?Interpretation?Positive.?Miscellaneous:?Marital status: . 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 ???Smoker--1-2 packs per week Drinks 4-6 beers approx 3 times per week. He was a heavier drinker until age 41. * Medications:?TakingMetoprolo l Tartrate 25 MG Tablet TAKE 1 TABLET BY MOUTH EVERY DAY Oral Medication List reviewed and reconciled with the patientTaking Metoprolol Tartrate 25 MG Tablet TAKE 1 TABLET BY MOUTH EVERY DAY Oral Medication List reviewed and reconciled with the patient * Allergies:?N.K.D.A.yes[Aller gies Verified] Objective: * Vitals:?Wt: 170 lb 6 oz, Ht: 71 in, BMI:23.76 Index, BP: 000/00 mm Hg, Temp: 97.7. * Examination: ???General Examination: ?GENERAL APPEARANCE:?pleasant, well nourished, well developed, in no acute distress.?EYES:?sclera non-icteric.?ORAL CAVITY:?mucosa moist.?NECK/THYROID:?no cervical lymphadenopathy, neck supple.?SKIN:?nonjaundiced, no spider angiomata..?HEART:?S1, S2 normal.?LUNGS:?clear to auscultation bilaterally.?ABDOMEN:?normal bowel sounds, no guarding or rigidity, no hepatosplenomegaly, no masses palpable, soft, nontender, nondistended..?EXTREMITIES:?no edema.?NEUROLOGIC:?alert and oriented.? Assessment: * Assessment: 1.?Hereditary hemochromatosi s - E83.110 (Primary)?2.?Family history of colon cancer - Z80.0?3.?Encounter for screening for malignant neoplasm of colon - Z12.11? Overall, Victor M appears quite well. He does not show any signs or have any symptoms of progressive liver disease. I did advise him to continue his phlebotomy every 3 months and we'll continue to follow his iron studies every 6 months or so in regard to the underlying hemachromatosis. I shall schedule him for a followup abdominal ultrasound, alpha-fetoprotein level, liver fibrosis score, liver profile, CBC with platelet count, and PT with INR. I did advise him that he should have these studies yearly given the underlying chronic liver disease and hemachromatosis. We also reviewed that he will be [...] to keep you advised of his progress. Plan: * Treatment: * Notes: Continue the phlebotomy every 3 months??2.?Family history of colon cancer ? Notes: Repeat colonoscopy in 2026?? * Immunizations:? Influenza (Not administered - Refused: Patient decision) * Procedure Codes:?3017F COLOR ECTAL CA SCREEN DOC [id number] TOBACCO [id number] BP SCR NOT PRFRM REC REASON NOS * Preventive Medicine:? ??Counseling:?Care goal follow-up plan:?Above Normal BMI Follow-up?Giving encouragement to exercise,?BMI management provided?Yes.? * Follow Up:?1 Year * * Sign off status: Completed true * Provider:?Serjio Richey MD Date:? 024 Generated for Claudia urrutia/Leslee/Ariasmitting on:?05/09/2024 11:08 AM EDT History and Physical Notes * HPI (History of Present Illness) Category Sub-Category Detail Notes Category Not es incontinence I saw Victor M in followup today in regard to his underlying history of hereditary hemachromatosis and discussion of colorectal cancer screening in regard to his family history of colon cancer. I last saw Victor M in September of 2022. Since that time he has continued having his phlebotomy about every 3 months or so. His most recent phlebotomy was in September and at that time his iron was 143 with an iron saturation of 50% and a ferritin of only 22. He did have an abdominal ultrasound in September of 2022 describing some probable fatty liver but no sign of any mass, biliary disease, splenomegaly, nor ascites. He enjoys a good appetite, without any significant heartburn or dysphagia. His bowel movements have been regular and without any signs of bleeding. He denies abdominal pain, jaundice, weight loss, increasing abdominal girth, edema, pruritus, nor fatigue. Examination Category Sub-Category Detail Notes Category Not es General Examination GENERAL APPEARANCE: pleasant , well [...]
--- OUTSIDE RECORDS SUMMARY | 2024-05-09 11:09 | XMS_ITS ---
Author Organization [facility] Address [address] [place] [address] Care Team Providers Care Regulatory Affairs Associate Name Role Phone BRADY JACOME Primary Care Provider REASON FOR VISIT [facility] Encounters Encounter Location Date Provider Diagnosis [address] [place] [address] 02/23/2024 BRADY JACOME Plan Of Treatment Next Appt Details Provider Name:BRADY JACOME , 02/25/2025 08:00:00 AM, [address], [place], [address], Progress Notes * Roberto MARTINEZDOB:1960 ( 64 yo M)Acc No.[id number]:02/23/2024 Patient:?Roberto MARTINEZ :1960???Age:64 Y???Sex:Male [address] [place] [address] * true * Date:? Generated for Printi renan/Leslee/eTransmitting on:?05/09/2024 11:08 AM EDT
--- OUTSIDE RECORDS SUMMARY | 2024-05-09 11:09 | XMS_ITS | Encounter Summary ---
Author Organization [facility] Address [address] [place] [address] Care Team Providers Care Nonfarm Animal Caretaker Name Role Phone Maria T Duncan MD Primary Care Provider Reason for Referral * Imaging (Routine) - Closed Specialty Diagnoses / Procedures Referred By Blanca t Referred To Contact Radiology Diagnoses Encounter for screening for lung cancer Cigarette smoker Procedures CT Lung Screening Chadwick Rodriguez MD [address] [address] Phone: tel: fax: [address] [address] Phone: tel: Referral ID Status Reason Start Date Expiration Date Visits Re quested Visits Authorized [id number] Closed 04/13/2024 04/13/2025 1 1 Reason for Visit * Imaging (Routine) - Closed Specialty Diagnoses / Procedures Referred By Contac t Referred To Contact Radiology Diagnoses Encounter for screening for lung cancer Cigarette smoker Procedures CT Lung Screening Chadwick Rodriguez MD [address] [address] Phone: tel: fax: [address] [address] Phone: tel: Referral ID Status Reason Start Date Expiration Date Visits Re quested Visits Authorized [id number] Closed 04/13/2024 04/13/2025 1 1 Encounter Details Date Type Department Care Team (Latest Contact Info) Description 05/01/2024 10:25 AM EDT - 05/01/2024 11:59 PM EDT Hospital Encounter [facility] CT Scan [address] [place] [address] Encounter for screening for lung cancer; Cigarette smoker Discharge Disposition: Home or Self Care Social History Tobacco Use Types Packs/Day Years Used Date Smoking Tobacco: Never Assessed Sex and Gender Information Value Date Recorded Sex Assigned at Male 05/01/2024 10:23 AM EDT Legal Sex Male 10:19 PM EST Gender Identity Male 05/01/2024 10:23 AM EDT Sexual Orientation Straight 05/01/2024 10 :23 AM EDT documented as of this encounter Discharge Disposition Disposition Code Departure Means Destination Home or Self Care documented in this encounter Plan of Treatment Not on file documented as of this encounter Procedures Procedure Name Priority Date/Time Associated Diagnosis Comments CT LUNG SCREENING Routine 05/01/2024 10: 42 AM EDT Encounter for screening for lung cancer Cigarette smoker documented in this encounter Results * CT Lung Screening (05/01/2024 10:42 AM EDT) Anatomical Region Laterality Modality Chest Computed Tomogra phy 05/01/2024 12:1 0 PM EDT Impressions 05/01/2024 12:20 PM EDT Impression: No suspicious developing pulmonary nodule. No significant change. Lung-RADS Category: ??Lung-RADS 2: Nodule(s) with benign appearance or behavior. Continue annual screening with Low Dose Chest CT in 12 months. Telerad MEHUL ([id number]) -------- FINAL REPORT -------- Dictated By: Azul Davis Dictated Date: 05/01/2024 12:10 ET Assigned Physician: Azul Davis Reviewed and Electronically Signed By: Azul Davis Signed Date: 05/01/2024 12:20 ET Workstation ID: [id number] Transcribed By: Self Edit Transcribed Date: 05/01/2024 12:10 ET Narrative 05/01/2024 12:20 PM EDT History: ??64 year-old 44 pack-year current smoker, asymptomatic, for lung cancer screening. Comparison: 03/26/23 Technique: Helical volumetric imaging of the thorax was performed, using low- dose technique, without IV contrast. DLP: 105.87 mGy/cm ??CTDIvol: 2.85 mGy [employer] [place] Iterative reconstruction technique Findings: Lungs and Airways: [...] contrast. DLP: 105.87 mGy/cm CTDIvol: 2.85 mGy [employer] [place] Iterative reconstruction technique Findings: Lungs and Airways: [...] Chest CT in 12 months. Telerad MEHUL ([id number]) -------- FINAL REPORT -------- Dictated By: Azul Davis Dictated Date: 05/01/2024 12:10 ET Assigned Physician: Azul Davis Reviewed and Electronically Signed By: Azul Davis Signed Date: 05/01/2024 12:20 ET Workstation ID: [id number] Transcribed By: Self Edit Transcribed Date: 05/01/2024 12:10 ET Chadwick Rodriguez MD IMG CT PROCEDURES Final Result documented in this encounter Visit Diagnoses Diagnosis Encounter for screening for lung cancer Cigarette smoker Tobacco use disorder documented in this encounter Care Teams Nonfarm Animal Caretaker Relationship Specialty Start Date End Date Maria T Duncan MD [address] [place] [address] PCP - General Internal Medicine 05/01/24 documented as of this encounter
--- OUTSIDE RECORDS SUMMARY | 2024-05-09 11:09 | XMS_ITS | Clinical Summary ---
Author Organization [facility] Address [address] [place] [address] Care Team Providers Care Needle Grinder Name Role Phone Roberto Gonzales MD Primary Care Provider Unavail able Allergies No known active allergies Medications Medication Sig Dispensed Refills Start Date End Date Status metoprolol tartrate (LOPRESSOR) 25 MG tablet Take 3 tablets (75 mg total) by mouth daily. 270 tablet 2 10/14/2020 Active varenicline (Chantix Starting Month ) 0.5 MG X 11 & 1 MG X 42 tablet Give with meals and with a full glass of water. 53 tablet 0 11/20/2020 Active Active Problems Problem Noted Date Diagnosed Date Hereditary hemochromatosis 08/11/2017 Social History Tobacco Use Types Packs/Day Years Used Date Smoking Tobacco: Never Assessed Sex and Gender Information Value Date Recorded Sex Assigned at Male 07/14/2021 2:33 PM EDT Gender Identity Not on file Sexual Orientation Not on file Last Filed Vital Signs Vital Sign Reading Time Taken Comments Blood Pressure 150/88 03/17/2021 11:13 AM EST Pulse 49 03/17/2021 11:13 AM EST Temperature 36.7 ??C (98 ??F) 03/17/2021 11:13 AM EST Respiratory Rate - - Oxygen Saturation 100% 03/17/2021 11:13 AM EST Inhaled Oxygen Concentration - - Weight 79.4 kg (175 lb) 03/17/2021 11:13 AM EST Height 180.3 cm (5' 11 ) 12/01/2018 4:28 PM EDT Body Mass Index 24.41 12/01/2018 4:28 PM EDT Plan of Treatment Health Maintenance Due Date Last Done Comments Hepatitis C Screening 1960 COVID-19 Vaccine (#1) 1960 Depression Screening 1973 Preventative Health Evaluation 1979 DTap / Tdap / Td (1 - Tdap) 02/12/1980 Colon Cancer Screening (Colonoscopy) 2006 Shingrix-Zoster Vaccine (1 of 2) 2011 Influenza Vaccine (#1) 2023 RSV Adult > 60+ Yrs or Pregn ant (1 - 1-dose 75+ series) 02/12/2036 Hepatitis B Vaccines Aged Out No long er eligible based on patient's age to complete this topic Pneumococcal Vaccine Aged Out No long er eligible based on patient's age to complete this topic RSV Ped < 20 months Aged Out No longe r eligible based on patient's age to complete this topic Insurance Payer Benefit Plan / Group Subscriber ID Effective Dates Phone Address [facility] [id number] 2021-Livan narvaez [address] [place] [address] HMO Care Teams Needle Grinder Relationship Specialty Start Date End Date Roberto Gonzales MD PCP - General Oncology 08/05/17
--- OUTSIDE RECORDS SUMMARY | 2024-05-09 11:09 | XMS_ITS ---
[facility] Organization [facility] Address [address] [place] [address] [address] [place] [address] Care Team Providers Care Pest Control Pilot Name Role Phone BAO JACOMEMAD Primary Care Provider [phone] Allergies No Known Allergies REASON FOR VISIT [...] Points 5 Interpretation Positive Vital Signs Temperature 98.2 degrees Fahrenheit 02/22/19 25 Oximetry 97 % 02/23/2024 Heart Rate 85 /min 02/23/2024 Blood pressure systolic 130 mm Hg 02/22/19 25 Blood pressure diastolic 80 mm Hg 025 Weight 171.6 lbs 02/23/2024 BMI 25.34 kg/m2 02/23/2024 Height 69 in 02/23/2024 98.2 Encounters Encounter Location Date Provider Diagnosis [facility] [address] [facility] [address] [place] [address] 02/23/2024 BRADY JACOME Encounter for genera l adult medical examination without abnormal findings Z00.00 ; Essential (primary) hypertension I10 ; Major depressive disorder, single episode, unspecified F32.9 ; Male erectile disorder F52.21 ; Nicotine dependence, cigarettes, uncomplicated F17.210 ; Hemochromatosis, unspecified E83.119 and Mixed hyperlipidemia E78.2 Assessments Encounter Date [...] Check lipid panel. Hemochromatosis. He goes to [place] and gets phlebotomies every [address] Richey Male erectile disorder. Continue Cialis 10 MG as needed. Nicotine dependence. He started on nicotine gum 2 mg. Advised not to take gum while he is smoking. Smoking cessation advised. Eye screening. He sees his desk lieutenant at least once a year. He wears [...] Check lipid panel. Hemochromatosis. He goes to [place] and gets phlebotomies every [address] Richey Male erectile disorder. Continue Cialis 10 MG as needed. Nicotine dependence. He started on nicotine gum 2 mg. Advised not to take gum while he is smoking. Smoking cessation advised. Eye screening. He sees his desk lieutenant at least once a year. He wears [...] Check lipid panel. Hemochromatosis. He goes to [place] and gets phlebotomies every [address] Richey Male erectile disorder. Continue Cialis 10 MG as needed. Nicotine dependence. He started on nicotine gum 2 mg. Advised not to take gum while he is smoking. Smoking cessation advised. Eye screening. He sees his desk lieutenant at least once a year. He wears [...] Check lipid panel. Hemochromatosis. He goes to [place] and gets phlebotomies every [address] Richey Male erectile disorder. Continue Cialis 10 MG as needed. Nicotine dependence. He started on nicotine gum 2 mg. Advised not to take gum while he is smoking. Smoking cessation advised. Eye screening. He sees his desk lieutenant at least once a year. He wears [...] Check lipid panel. Hemochromatosis. He goes to [place] and gets phlebotomies every [address] Richey Male erectile disorder. Continue Cialis 10 MG as needed. Nicotine dependence. He started on nicotine gum 2 mg. Advised not to take gum while he is smoking. Smoking cessation advised. Eye screening. He sees his desk lieutenant at least once a year. He wears [...] Check lipid panel. Hemochromatosis. He goes to [place] and gets phlebotomies every [address] Richey Male erectile disorder. Continue Cialis 10 MG as needed. Nicotine dependence. He started on nicotine gum 2 mg. Advised not to take gum while he is smoking. Smoking cessation advised. Eye screening. He sees his desk lieutenant at least once a year. He wears [...] Check lipid panel. Hemochromatosis. He goes to [place] and gets phlebotomies every [address] Richey Male erectile disorder. Continue Cialis 10 MG as needed. Nicotine dependence. He started on nicotine gum 2 mg. Advised not to take gum while he is smoking. Smoking cessation advised. Eye screening. He sees his desk lieutenant at least once a year. He wears [...] Name Sig Start Date Stop Date Notes Nicorette 2 MG 1 piece chew for 30 minutes as needed Mouth/Throat every 6 hrs for 30 days 02/23/2024 Wellbutrin SR 150 MG 1 tablet in the mor rod Orally Once a day for 30 days Cialis 10 MG 1 tablet as needed O rally Once a day for 30 days 11/27/2021 Future Test Test Name Order Date Albumin/Creatinine Ratio,Urine-[id number] Lipid Panel-[id number] 02/23/2024 Comp. Metabolic Panel ([id number] 2024 PSA (Serial Monitor)-[id number] 02/23/2024 Next Appt Details Follow Up: 1 Year- Fercho MACK n: Provider Name:BRADY JACOME , 02/25/2025 08:00:00 AM, [address] [place] [address], [id number], Procedure Notes * Category Sub-Category Detail Notes Urinalysis Protein: Trace Ketones: Trace Leukocytes: Negative Nitrates: Negative pH: Negative Spec [place]: 1.010 Glucose: Negative Blood: Negative Bilirubin: Negative Urobili: Negative Progress Notes * Roberto MARTINEZDOB:1960 ( 64 yo M)Acc No.[id number]:02/23/2024 Progress Notes Patient:Roberto GRAJEDA Provider:?BRADY JACOME MD :1960???Age:64 Y???Sex:Male Jermain e:02/23/2024 Address:[address] [place] [address] [place], [id number] Subjective: * Chief Complaints: * ???CPE * [...] at all ?Total Score?4 ?Interpretation?Minimal Depression ???Internal Medicine:?Mr. Martinez is a 62-year-old gentleman with hemochromatosis and gets phlebotomies every 6 weeks, fatty liver, anxiety disorder, erectile dysfunction, hypertension and nicotine dependence here for annual physical. He is in his usual state of health.? His anxiety is under control on Wellbutrin SR 150 mg 1 tablet daily and he is also taking metoprolol 25 mg 1 tablet twice a day.? He is currently smoking and he wants to quit smoking.? Vision and hearing is stable.? Neurocognitive function is intact.? He does not need help with activities of daily living.? He is gainfully employed. * ROS:?General/Constitutional:?Overall health?Good.?Change in appetite?denies.?Chills?denies.?Fever?denies.?Night sweats?denies.?Sleep disturbance?denies.?Weight gain?denies.?Weight loss?denies.?Neurologic:?Difficulty speaking?denies.?Dizziness?denies.?Gait abnormality?denies.?Headache?denies.?Loss of strength?denies.?Memory loss?denies.?Seizures?denies.?Tingling/Numbness?denies .?Ophthalmologic:?Blurred vision?denies.?Discharge?denies.?Dry eye?denies.?Red eye?denies.?ENT:?Change in Voice?Denies.?Cold Symptoms?Denies.?Cough?Denies.?Dizziness?Denies.?Nasal Congestion?Denies.?Otalgia?Denies.?postnasal drip?Denies.?Blocked ear?denies.?Nosebleed?denies.?Snoring?denies.?Cardiovascular:?Diaphoresis?Denies.?Pedal Edema?Denies.?PND (Paroxsymal nocturnal dyspnea)?Denies.?Chest pain?denies.?Difficulty laying flat?denies.?Dyspnea on exertion?denies.?Heart murmur?denies.?Orthopnea?denies.?Respiratory:?Snoring?denies.?Asthma?denies.?Cough?denies.?Shortness of breath with exertion?denies.?Sputum production?denies.?Wheezing?denies.?Gastrointestinal:?Change in bowel habits?denies.?Constipation?denies.?Decreased appetite?denies.?Diarrhea?denies.?Heartburn?denies.?Nausea?denies.?Vomiting?quyen es.?Musculoskeletal:?tingling/numbness?Denies.?myalgias?Denies.?Joint Swelling?Denies.?extremeties?normal.?Arthritis?denies.?Back problems?denies.?Carpal tunnel?denies.?Joint stiffness?denies.?Muscle aches?denies.?Endocrine:?Bowel Changes?Denies.?Breast Discharge?Denies.?poor libido?Denies.?Cold intolerance?denies.?Excessive sweating?denies.?Excessive thirst?denies.?Frequent urination?denies.?Thyroid problems?denies.?Skin:?Bruising?Denies.?Eczema?denies.?Hair changes?denies.?Rash?denies.?Skin lesion(s)?denies.?Psychiatric:?Anxiety?denies.?Difficulty sleeping?denies.?Nervous breakdown?denies.?Substance abuse?denies.?Urology:?abnormal menstrual bleeding?denies.?blood in urine?denies.?burning on urination?denies.?difficulty urinating?denies.?discharge?denies.?dysuria?denies.? * Medical History:? * Surgical History:?right bijalu breanaer surgery * Hospitalization/Major Diagno stic Procedure:? * Family History:?Siblings: He mochromatosis.? * Social History:?Tobacco Use:?Tobacco Use/Smoking?Are you a?current [...] status: . ?Occupation: Works full-time, Construction. * Medications:?TakingNicotine 14 MG/24HR Patch 24 Hour 1 patch to skin Transdermal Once a day Wellbutrin SR 150 MG Tablet Extended Release 12 Hour 1 tablet in the morning Orally Once a day Metoprolol Tartrate 25 MG Tablet 3 tablet with food Orally once a day Cialis 10 MG Tablet 1 tablet as needed Orally Once a day Medication List reviewed and reconciled with the patientTaking Nicotine 14 MG/24HR Patch 24 Hour 1 patch to skin Transdermal Once a day Taking Wellbutrin SR 150 MG Tablet Extended Release 12 Hour 1 tablet in the morning Orally Once a day Taking Metoprolol Tartrate 25 MG Tablet 3 tablet with food Orally once a day Taking Cialis 10 MG Tablet 1 tablet as needed Orally Once a day Medication List reviewed and reconciled with the patient * Allergies:?N.K.D.A.no[Allerg ies Verified] Objective: * Vitals:?Temp:98.2F, Oxygen s at %:97%, HR:85/min, BP:130/80mm Hg, Wt:171.6lbs, BMI:25.34Index, Ht: 69 in. 98.2. * Examination: ???General Examination: ?Psychiatry?Normal.?GENERAL APPEARANCE:?Well developed, [...] discharge, no testicular mass, prostate normal,?skin tag present.?PODIATRIC:?Normal.?Metal Technician? .? Assessment: * Assessment: 1.?Encounter for general mellissa lt medical examination without abnormal findings - Z00.00 (Primary)???2.?Essential (primary) hypertension - I10???3.?Major depressive disorder, single episode, unspecified - F32.9???4.?Male erectile disorder - F52.21???5.?Hemochromatosis, unspecified - E83.119???6.?Nicotine dependence, cigarettes, uncomplicated - F17.210???7.?Mixed hyperlipidemia - E78.2??? Mr. Martinez is a 62-year-old ntleman with hemochromatosis and gets phlebotomies every 6 [...] Check lipid panel. Hemochromatosis. He goes to [place] and gets phlebotomies every [address] Richey Male erectile disorder. Continue Cialis 10 MG as needed. Nicotine dependence. He started on nicotine gum 2 mg.? Advised not to take gum while he is smoking. Smoking cessation advised. Eye screening. He sees his desk lieutenant at least once a year. He wears prescription glasses at this point. Dental screening. He sees dentist regularly. Age-specific screenings. He had his colonoscopy in 2020 and is on a 5-year cycle. Immunizations. He is up to date on his vaccinations. Blood work ordered General health concerns discussed with patient. Screening blood work before next appointment. Plan: * Treatment: 2.?Major depressive disorder , single episode, unspecified? Start Wellbutrin SR Tablet Extended Release 12 Hour, 150 MG, 1 tablet in the morning, Orally, Once a day, 30 days, 30, Refills 3.?? 3.?Male erectile disorder? Refill Cialis Tablet, 10 MG, 1 tablet as needed, Orally, Once a day, 30 days, 9, Refills 5.?? 4.?Nicotine dependence, ciga rettes, uncomplicated? Start Nicorette Gum, 2 MG, 1 piece chew for 30 minutes as needed, Mouth/Throat, every 6 hrs, 30 days, 112, Refills 1.?? 5.?Others?LAB: PSA (Serial Monitor)-[id number] (Ordered for 02/23/2024) * Procedures:?Urinalysis:?Glucose:?Negative?.?Bilirubin:?Negative?.?Ketones:?Trace.?Spec [place]:?1.010.?Blood:?Negative.?pH:?Negative.?Protein:?Trace.?Urobili:?Negative.?Nitrates:?Negative.?Leukocytes:?Negative.? * Procedure Codes:?3079F DIAST BP 80-89 MM [id number] SYST BP GE 130 - 139MM [id number] ELECTROCARDIOGRAM, [id number] BRIEF EMOTIONAL/BEHAV [id number] AUDIT/DAST, 15-30 MIN * Preventive Medicine:?COVID (1) 2020 FLU 2023 SHINGRIX 01/2021 Pneumonia- BMD COLONOSCOPY 2020 5 YR EYE EXAM- 03/2024. * Follow Up:?1 Year- AW * * Sign off status: Completed true * Provider:?BRADY JACOME MD Date:?02/22 Generated for Sonami renan/Leslee/eTransmitting on:?05/09/2024 11:08 AM EDT History and Physical [...] 4 Interpretation: Minimal Depression Internal Medicine Mr. Martinez i s a 62-year-old gentleman with hemochromatosis and gets phlebotomies every 6 weeks, fatty liver, anxiety disorder, erectile dysfunction, hypertension and nicotine dependence here for annual physical. He is in his usual state of health. His anxiety is under control on Wellbutrin SR 150 mg 1 tablet daily and he is also taking metoprolol 25 mg 1 tablet twice a day. He is currently smoking and he wants to quit smoking. Vision and hearing is stable. Neurocognitive function is intact. He does not need help with activities of daily living. He is gainfully employed. Examination Category Sub-Category Detail Notes Category Not [...] Normal Psychiatry Normal OROPHARYNX Normal SINUSES Normal Metal Technician
[2024-05-09 11:42] LABS: Iron 316 mcg/dL (45-160); Percent Iron Saturation 93 % (15-50); Total Iron Binding Capacity 341 mcg/dL (228-428); Unsaturated Iron Binding < 25 ug/dL
[2024-05-09 11:59] LABS: Ferritin 56 ng/mL (20-250)
== END 2024-05-09 09:50 | disposition home or self-care (01) ==
LOC: HO.BBR 09:49
PROVIDERS: PCP Hospitalist; Visit Provider Internal Medicine
DX: E83.110 Hereditary hemochromatosis (principal)
CPT/HCPCS: 36415; 82728; 83540

== ENCOUNTER 2024-08-13 13:50 | Outpatient (REF) | payer OTHER, SELFPAY ==
--- OUTSIDE RECORDS SUMMARY | 2024-08-13 14:22 | XMS_ITS | Patient Health Record ---
Author Organization [employer] Address [address] [place] [address] Care Team Providers Care Pyrotechnics Press Tender Name Role Phone BRADY JACOME Primary Care Provider [phone] Allergies No Known Allergies Results Component Value Reference Range Notes CT LUNG SCREENING Reviewed date:05/01/2024 05:18:17 PM Interpretation: Performing Lab: Notes/Report: Note See Note [facility], a member of [employer] Patient Name: ROBERTO MARTINEZ Date of : 1960 Reason for Exam: Lung cancer screening, >=20 pk yr smoking history in last 15 yrs (Age 50-80y) Exam Date: 05/01/2024 [id number] EST Report Status: Final Ordering Provider: CARINA SILVA PCP: BRADY JACOME History: 64 year-old 44 pack-year current smoker, asymptomatic, for lung cancer screening. Comparison: 03/26/23 Technique: Helical volumetric imaging of the thorax was performed, using low-dose technique, without IV contrast. DLP: 105.87 mGy/cm C TDIvol: 2.85 mGy [employer] [place] Iterative reconstruc tion technique Findings: Lungs and [...] Chest CT in 12 months. [place] ([id number]) -------- FINAL REPOR T -------- Dictated By: Azul Patel i Dictated Date: 05/01 12:10 ET Assigned Physician: Azul Davis Reviewed and Electro nically Signed By: Azul Davis Signed Date: 025 12:20 ET Workstation ID: [id number] Transcribed By: Self Edit Transcribed Date: 05/01/2024 12:10 ET Reason For Referral No Information Medications Medication SIG (Take, Route, Frequency, Duration) Notes Start Date End Date Status Nicorette 2 MG 1 piece chew for 30 minutes as needed Mouth/Throat every 6 hrs; Duration: 30 days 02/23/2024 Active Wellbutrin SR 150 MG 1 tablet in the mor rod Orally Once a day; Duration: 30 days Active Metoprolol Tartrate 25 MG 3 tablet with food Orally once a day; Duration: 30 days Active Cialis 10 MG 1 tablet as needed O rally Once a day; Duration: 30 days 11/27/2021 Active Nicotine 14 MG/24HR 1 patch to skin Transdermal Once a day; Duration: 30 day(s) 11/27/2021 Active Immunizations Vaccine Route [...] W/U Status Risk Notes Problem Mixed hyperlipidemia (477721372) Mixed hyperlipidemia (E78.2) Active confirmed Problem Hemochromatosis (550967298) Hemochromatosis, unspecified (E83.119) Active confirmed Problem Tobacco user (768769421) Nicotine dependence, cigarettes, uncomplicated (F17.210) Active confirmed Problem Major depression, single episode (21375166) Major depressive disorder, single episode, unspecified (F32.9) Active confirmed Problem Male erectile disorder (134636185) Male erectile disorder (F52.21) Active confirmed Problem Essential hypertension (61222731) Essential (primary) hypertension (I10) Active confirmed Vital Signs Heart Rate 85 /min 02/23/2024 98.2 Temperature 98.2 degrees Fahrenheit 02/23/2024 98.2 Blood pressure diastolic 80 mm Hg 02/23/2024 98. 2 Oximetry 97 % 02/23/2024 98.2 Height 69 in 02/23/2024 98.2 Blood pressure systolic 130 mm Hg 02/23/2024 98.2 Weight 171.6 lbs 02/23/2024 98.2 BMI 25.34 kg/m2 02/23/2024 98.2 Encounters Encounter Location Date Provider Diagnosis [address] [address] 02/23/2024 BRADY JACOME Encounter for genera l adult medical examination without abnormal findings Z00.00 ; Essential (primary) hypertension I10 ; Major depressive disorder, single episode, unspecified F32.9 ; Male erectile disorder F52.21 ; Nicotine dependence, cigarettes, uncomplicated F17.210 ; Hemochromatosis, unspecified E83.119 and Mixed hyperlipidemia E78.[address] [address] 02/23/2024 BRADY JACOME Assessments Encounter Date Diagnosis [...] Check lipid panel. Hemochromatosis. He goes to [place] and gets phlebotomies every [address] Richey Male erectile disorder. Continue Cialis 10 MG as needed. Nicotine dependence. He started on nicotine gum 2 mg. Advised not to take gum while he is smoking. Smoking cessation advised. Eye screening. He sees his fire apparatus engineer at least once a year. He wears [...] Check lipid panel. Hemochromatosis. He goes to [place] and gets phlebotomies every [address] Richey Male erectile disorder. Continue Cialis 10 MG as needed. Nicotine dependence. He started on nicotine gum 2 mg. Advised not to take gum while he is smoking. Smoking cessation advised. Eye screening. He sees his fire apparatus engineer at least once a year. He wears [...] Check lipid panel. Hemochromatosis. He goes to [place] and gets phlebotomies every [address] Richey Male erectile disorder. Continue Cialis 10 MG as needed. Nicotine dependence. He started on nicotine gum 2 mg. Advised not to take gum while he is smoking. Smoking cessation advised. Eye screening. He sees his fire apparatus engineer at least once a year. He wears [...] Check lipid panel. Hemochromatosis. He goes to [place] and gets phlebotomies every [address] Richey Male erectile disorder. Continue Cialis 10 MG as needed. Nicotine dependence. He started on nicotine gum 2 mg. Advised not to take gum while he is smoking. Smoking cessation advised. Eye screening. He sees his fire apparatus engineer at least once a year. He wears [...] Check lipid panel. Hemochromatosis. He goes to [place] and gets phlebotomies every [address] Richey Male erectile disorder. Continue Cialis 10 MG as needed. Nicotine dependence. He started on nicotine gum 2 mg. Advised not to take gum while he is smoking. Smoking cessation advised. Eye screening. He sees his fire apparatus engineer at least once a year. He wears [...] Check lipid panel. Hemochromatosis. He goes to [place] and gets phlebotomies every [address] Richey Male erectile disorder. Continue Cialis 10 MG as needed. Nicotine dependence. He started on nicotine gum 2 mg. Advised not to take gum while he is smoking. Smoking cessation advised. Eye screening. He sees his fire apparatus engineer at least once a year. He wears [...] Check lipid panel. Hemochromatosis. He goes to [place] and gets phlebotomies every [address] Richey Male erectile disorder. Continue Cialis 10 MG as needed. Nicotine dependence. He started on nicotine gum 2 mg. Advised not to take gum while he is smoking. Smoking cessation advised. Eye screening. He sees his fire apparatus engineer at least once a year. He wears [...] Future Test Test Name Order Date Albumin/Creatinine Ratio,Urine-[id number] Lipid Panel-[id number] 02/23/2024 Comp. Metabolic Panel ([id number] 2024 PSA (Serial Monitor)-[id number] 02/23/2024 Next Appt Details Provider Name:ABREU A GUL , 02/25/2025 08:00:00 AM, [address] [place] [address], [id number], Insurance Providers Payer Name Payer Address Payer Phone Subscriber Number Group Number Insured Name Patient Relationship to Insured Coverage Start Date Coverage End Date [facility] [address] [place] [address] [id number] Roberto Martinez Self - patient is the insured Medical (General) History Medical History History ICD Code Nicotine dependence Hypertension hemochromatosis and gets phlebotomies fatemeh barlow 6 weeks, sees Dr. Richey Erectile dysfunction Surgical History Surgery Date(Month/Year) right shoulder surgery
--- OUTSIDE RECORDS SUMMARY | 2024-08-13 14:22 | XMS_ITS | Clinical Summary ---
Author Organization [facility] Address [address] [place] [address] Phone Care Team Providers Care Equity Trader Name Role Phone Maria T Duncan MD Primary Care Provider [phone] Social History Tobacco Use Types Packs/Day Years [...] - 2023-2 5 season) 2023 Influenza Vaccine (Season Ended) 2024 RSV Immunization Adult Patie nts (1 - 1-dose 75+ series) 02/12/2036 HIB [...] age to complete this topic Meningococcal B Vaccine Aged Out No l onger eligible based on patient's age to complete [...] patient's age to complete this topic Insurance [facility] Care Teams Equity Trader Relationship Specialty Start Date End Date Maria T Duncan MD [address] [place] [address] PCP - General Internal Medicine 05/01/24
--- OUTSIDE RECORDS SUMMARY | 2024-08-13 14:22 | XMS_ITS | Clinical Summary ---
Author Organization [facility] Address [address] [place] [address] Care Team Providers Care Emulsion Coater Name Role Phone Roberto Gonzales MD Primary [...] 50 03/17/2021 11:13 AM EST Temperature 36.7 C (98 F) 03/17/2021 11:13 AM EST Respiratory Rate - [...] Vaccine (1 of 2) 2011 Influenza Vaccine (Season Ended) 2024 RSV Adult > 60+ Yrs or Pregn [...] Group Subscriber ID Effective Dates Phone Address [facility] [id number] 2021-Livan narvaez [address] [facility] [address] [place] [address] HMO Care Teams Emulsion Coater Relationship Specialty Start Date End Date Roberto Gonzales MD PCP - General Oncology 08/05/17
--- OUTSIDE RECORDS SUMMARY | 2024-08-13 14:22 | XMS_ITS | Patient Health Record ---
Author Organization [facility] Address [address] [place] [address] Care Team Providers Care Photoengraving Machine Operator/Tender Name Role Phone BRADY DUNCAN Primary Care Provider Serjio Winters [phone] Allergies No Known Allergies Results Component Value Reference Range Notes IRON PROFILE Reviewed date:09/16/2023 11:19:30 PM Interpretation: Performing Lab:[facility], [address] [place] [phone] Notes/Report: Iron 143 45-160 mcg/dL Total Iron Binding Capacity 285 228-428 mcg/dL Percent Iron Saturation 50 15-50 % Unsaturated Iron Binding 142 Ferritin Reviewed date:09/16/2023 11:19:39 PM Interpretation: Performing Lab:[facility], [address] [place] [phone] Notes/Report: Ferritin 22 20-250 ng/mL Therapeutic Phlebotomy Reviewed date:09/17/2023 04:31:48 PM Interpretation: Performing Lab:[facility], [address] [place] [phone] Notes/Report: THER/HGB 13.9 14.0-18.0 g/dL THER/HCT TNP 42.0-52.0 % Therapeutic Phlebotomy Phlebotomy Performed 500 mls drawn on 09/16/23. Please note that a copy of this report has been sent to the Primary Care Physician, the ordering physician and any physician designated by patient request. Complete Blood Count Auto Di ff Reviewed date:02/01/2024 01:50:09 PM Interpretation: Performing Lab:[facility], [address] [place] [phone] Notes/Report: White Blood Count 5.5 4.8-10.8 X10*3/uL [...] 0.0-0.2 /100WBC Neutrophils Absolute Auto 2.8 2.0-8.3 x10*3/u L Imm Gran Abs Auto 0.02 0.00-0.03 X10*3/uL Lymphocytes Absolute Auto 1.8 1.2-4.9 X10*3/u L Monocytes Absolute Auto 0.7 0.1-1.2 X10*3/uL Eosinophils Absolute Auto 0.1 0.0-0.4 X10*3/u L Basophils Absolute Auto 0.0 0.0-0.2 X10*3/uL NRBC Abs Auto 0.000 0.0-0.012 X10*3/uL Prothrombin Time INR Reviewed date:02/01/2024 01:49:17 PM Interpretation: Performing Lab:[facility], [address] [place] [phone] Notes/Report: Prothrombin Time 10.5 10.9-12.4 [employer] [...] Panel Reviewed date:02/01/2024 01:49:32 PM Interpretation: Performing Lab:[address] [address] Notes/Report: Bilirubin Total 0.9 0.0-1.0 mg/dL Bilirubin Direct 0.3 0.0-0.5 mg/dL Aspartate Amino Transferase 27 5-37 U/L Alanine Aminotransferase 22 0-40 U/L Total Protein 7.6 6.5-8.0 g/dL Albumin Level 4.4 3.5-5.0 g/dL Alkaline Phosphatase 77 39-117 U/L Alpha Fetoprotein Reviewed date:02/10/2024 09:52:04 PM Interpretation: Performing Lab:[address] [address] Notes/Report: Alpha Fetoprotein 2.0 <6.1 ng/mL This test was performed using the Raul[employer] [place] chemiluminescent method. Values obtained from different assay methods cannot be used interchangeably. AFP levels, regardless of value, should not be interpreted as absolute evidence of the presence or absence of disease. THIS TEST WAS PERFORMED AT: [facility] [address] [place] [phone] LOREE ENRIQUEZ MD Liver Fibrosis Pnl Reviewed date:02/10/2024 09:53:28 PM Interpretation: Performing Lab:[address] [phone] Notes/Report: Liver Fibrosis Score 0.17 Liver Fibrosis [...] a>0.62 and a<=1.00 : A3 (severe activity) VWS-Rkgxp-5-Macroglobulin 184 106-279 mg/dL FIB-Haptoglobin 131 43-212 mg/dL FIB-Apolipoprotein A1 185 94-176 mg/dL FIB-Total Bilirubin 0.4 0.2-1.2 mg/dL FIB-GGT 39 3-70 U/L FIB-ALT 15 9-46 U/L Reference ID [id number] Footnote SEE NOTE The reliability of results [...] The performance characteristics have been determined by [facility]. It has not been cleared or approved by the U.S. Food and Drug Administration. Performance characteristics refer to the analytical performance of the test. [employer], the associated logo, This [employer] In and all associated [employer] munoz are the registered trademarks of [employer]. All third green party munoz - (R) and (TM) - are the property of their respective owners. (C) 2361-3967 [employer]. All rights reserved. THIS TEST WAS PERFORMED AT: [employer] [facility] [facility] [address] [place] [address] DESII DYSON MD,PHD,NAT US abdomen comp w elastograp hy (Not yet reviewed by provider) Interpretation: Performing Lab: Notes/Report: [address] [address] Ultrasound Report Signed Patient: Roberto Martinez MR#: [id number] 8 : 1960 Acct:[id number] Age/Sex: 63 / M ADM Date: 02/01/24 Loc: HO.US Attending Dr: Serjio Richey MD Ordering Physician: Serjio Richey MD Date of Service: 02/01/24 Procedure(s): US abdomen comp w elastography Accession Number(s): [id number] cc: Kade Duncan MD; Serjio Richey MD [...] by: Serjio Linda MD 03/13/2024 09:28 AM [facility] Dictated By: Serjio Linda MD Signed By: <Electronically signed by Serjio Linda MD in OV> 03/13/24927 DD/ 9 TD/TT: 02/01/24829 Teen Counselor: IRON PROFILE Reviewed date:05/09/2024 11:31:06 PM Interpretation: Performing Lab:[address] [address] Notes/Report: Iron 316 45-160 mcg/dL Total Iron Binding Capacity 341 228-428 mcg/dL Percent Iron Saturation 93 15-50 % Unsaturated Iron Binding < 25 Ferritin Reviewed date:05/09/2024 11:30:47 PM Interpretation: Performing Lab:[facility], [address] [place] [phone] Notes/Report: Ferritin 56 20-250 ng/mL Therapeutic Phlebotomy Reviewed date:05/09/2024 11:30:27 PM Interpretation: Performing Lab:[address] [address] Notes/Report: THER/HGB 16.7 14.0-18.0 g/dL THER/HCT TNP 42.0-52.0 % Therapeutic Phlebotomy Phlebotomy Performed 500 mls drawn on 05/09/24. Please note that a copy of this report has been sent to the Primary Care Physician, the ordering physician and any physician designated by patient request. Reason For Referral No Information Medications Medication [...] Problem Status W/U Status Risk Notes Problem 018443782 Encounter for screening for malignant neoplasm of colon (Z12.11) Active confirmed Problem 39217089 Hereditary hemochromatosis (E83.110) Active confirmed Problem Screening for malignant neoplasm of rectum (877307938) Encounter for screening for malignant neoplasm of rectum (Z12.12) Active confirmed Problem 161077530 Family history o f colon cancer (Z80.0) Active confirmed Problem Diverticulosis of colon (051410958) Diverticulosis of colon (K57.30) Active confirmed Vital Signs Temperature 97.7 degrees Fahrenheit 01/18/2024 Blood pressure diastolic 00 mm Hg 01/18/2024 Height 71 in 01/18/2024 Blood pressure systolic 000 mm Hg 01/18/2024 Weight 170 lb 6 oz lbs 01/18/2024 BMI 23.76 kg/m2 01/18/2024 Encounters Encounter Location Date Provider Diagnosis [facility] [address] [place] [phone] 01/18/2024 Serjio Richey Hereditary hemochromatosis E83.110 ; Family history of colon cancer Z80.0 and Encounter for screening for malignant neoplasm of colon Z12.11 [facility] [address] [place] [address] 09/09/2023 Serjio Richey Assessments Encounter Date Diagnosis [...] Name:Serjio Richey , 01/17/2025 09:00:00 AM, [address] [facility], [address], [place], [address], Insurance Providers Payer Name Payer Address Payer Phone Subscriber Number Group Number Insured Name Patient Relationship to Insured Coverage Start Date Coverage End Date [facility] [address] [place] [address] [id number] ROBERTO MARTINEZ Self - patient is the insured 9 [...] normal iron saturation and ferritin level. Denies [place],DM,CVA,Lung disease,renal dise ase HTN Neg. colonoscopy in 03/2016 Negative screening colonoscopy in May of 2021 Surgical History Surgery Date(Month/Year) Right shoulder
== END 2024-08-13 13:51 | disposition home or self-care (01) ==
LOC: HO.BBR 13:50
PROVIDERS: PCP Hospitalist; Visit Provider Internal Medicine
DX: Z13.89 Encounter for screening for other disorder (principal)

== ENCOUNTER 2025-02-04 12:42 | Outpatient (REF) | payer OTHER, SELFPAY ==
--- OUTSIDE RECORDS SUMMARY | 2025-02-04 15:50 | XMS_ITS | Patient Health Record ---
Author Organization [facility] Address [address] [place] [address] Care Team Providers Care Document Coordinator Name Role Phone NAA BRADY Primary Care Provider Serjio Winters [phone] Allergies No Known Allergies Results Component Value Reference Range Flag Notes IRON PROFILE Reviewed date:05/09/2024 11:31:06 PM Interpretation: Performing Lab:[facility], [address] [place] [phone] Notes/Report: Iron 316 45-160 mcg/dL H Total Iron Binding Capacity 341 228-428 mcg/dL N Percent Iron Saturation 93 15-50 % H Unsaturated Iron Binding < 25 Ferritin Reviewed date:05/09/2024 11:30:47 PM Interpretation: Performing Lab:[facility], [address] [place] [phone] Notes/Report: Ferritin 56 20-250 ng/mL N Therapeutic Phlebotomy Reviewed date:05/09/2024 11:30:27 PM Interpretation: Performing Lab:[facility], [address] [place] [phone] Notes/Report: THER/HGB 16.7 14.0-18.0 g/dL N THER/HCT TNP 42.0-52.0 % Therapeutic Phlebotomy Phlebotomy Performed 500 mls drawn on 05/09/24. Please note that a copy of this report has been sent to the Primary Care Physician, the ordering physician and any physician designated by patient request. Therapeutic Phlebotomy (Not yet reviewed by provider) Interpretation: Performing Lab:[facility], [address] [place] [phone] Notes/Report: THER/HGB 14.0 14.0-18.0 g/dL N THER/HCT TNP 42.0-52.0 % Therapeutic Phlebotomy Phlebotomy Performed 500 mls drawn on 02/04/25. Please note that a copy of this report has been sent to the Primary Care Physician, the ordering physician and any physician designated by patient request. Therapeutic Phlebotomy Reviewed date:08/13/2024 10:46:14 PM Interpretation: Performing Lab:[facility], [address] [place] [phone] Notes/Report: THER/HGB 16.0 14.0-18.0 g/dL N THER/HCT TNP 42.0-52.0 % Therapeutic Phlebotomy Phlebotomy Performed 500 mls drawn on 08/13/24. Please note that a copy of this report has been sent to the Primary Care Physician, the ordering physician and any physician designated by patient request. Reason For Referral No Information Medications Medication SIG (Take, Route, Frequency, Duration) Notes Start Date End Date Status Metoprolol Tartrate 25 MG Tablet TAKE 1 TABLET BY MOUTH EVERY DAY Oral; Duration: 30 Not-Taking/PRN Immunizations Vaccine Route Administration Date Status Comme nts Influenza Unknown 06/04/2020 Refused Influenza Unknown 04/15/2021 Refused Influenza Unknown 01/18/2024 Administered Influenza Unknown 01/18/2024 Refused Social History Tobacco Use: Social History Observation Description Date Details (start date - stop date) Current Smoker NA - NA Social History Drug/Alcohol: Social Info Question Answer Notes AUDIT-C (Standard) Did you have a drink containing alcohol in the past year? Yes How often did you have a drink containing alcohol in the past year? 2 to 3 times a week (3 points) How many drinks did you have on a typical day when you were drinking in the past year? 1 or 2 drinks (0 point) How often did you have six or more drinks on one occasion in the past year? 2 to 4 times a month (2 points) Points 5 Interpretation Positive Tobacco Use: Social Info Question Answer Notes Tobacco Control (Standard) Tobacco use: Current smoker Additional Details Category Social Info Options Details Miscellaneous: Marital status: Occupation: Construction wit h primarily [employer] Section Notes: Smoker; drinks 2 6-packs ove [...] was a heavier drinker until age 41. Smoker- 1-2 packs per week Drinks a couple of beers approx 1 or 2 times per week. He was a heavier drinker until age 41. Problems Problem Type SNOMED Code ICD Code Onset Dates Problem Status W/U Status Risk Notes Problem Screening for malignant neoplasm of colon (272817939) Encounter for screening for malignant neoplasm of colon (Z12.11) Active confirmed Problem Hereditary hemochromatosis (04001969) Hereditary hemochromatosis (E83.110) Active confirmed Problem Screening for malignant neoplasm of rectum (502172956) Encounter for screening for malignant neoplasm of rectum (Z12.12) Active confirmed Problem Family History of Cancer of Colon (Situation) (269624507) Family history of colon cancer (Z80.0) Active confirmed Problem Diverticulosis of colon (112015552) Diverticulosis of colon (K57.30) Active confirmed Problem Hepatic fibrosis (disorder) (34366941) Liver fibrosis (K74.00) Active confirmed Vital Signs Blood pressure diastolic 01 mm Hg 01/17/2025 Height 71 in 01/17/2025 Blood pressure systolic 001 mm Hg 01/17/2025 Weight 167 lbs 01/17/2025 BMI 23.29 kg/m2 01/17/2025 Encounters Encounter Location Date Provider Diagnosis [facility] [address] [place] [address] 01/17/2025 Serjio Richey Hereditary hemochromatosis E83.110 ; Encounter for screening for malignant neoplasm of colon Z12.11 ; Family history of colon cancer Z80.0 and Liver fibrosis K74.00 Assessments Encounter Date Diagnosis (ICD Code) Assessment Notes Treatment Notes Treatment Clinical Notes Section Notes 01/17/2025 Encounter for screening for malignant neoplasm of colon (ICD-10 - Z12.11) Colonoscopy in 2026 Overall, Roberto appears well. While he most likely does have some liver fibrosis from his previous alcohol use and the hemochromatosis, he appears to continue to have good liver function. I did advise him of the importance of elminating alcohol completely so as to avoid further liver damage with potential for cirrhosis and increase morbidity and mortality from that. He will continue his phlebotomy every 3 months and will check iron studies every 6 months. I will send a new order over to the blood bank for him to start that this month. I shall check the below laboratories as well as his yearly ultrasound. We did review that he needs his laboratories and ultrasound yearly due to the hemochromatosis and some scarring in the liver. We reviewed the theoretical increased risk of hepatoma in patients with chronic liver disease and the underlying hemochromatosis. We did review that he will be due for a follow-up screening colonoscopy in 2026. I will plan to see him at the end of 2025 for a follow-up visit and we will then schedule the colonoscopy for him at that time. I did advise him to contact me prior to next year's office visit if he has any problems or questions I can be of assistance with. Roberto was comfortable with this plan. 01/17/2025 Hereditary hemochromatosis (ICD-10 - E83.110) Continue the phlebotomies at the Blood Bank every 3 months Overall, Roberto appears well. While he most likely does have some liver fibrosis from his previous alcohol use and the hemochromatosis, he appears to continue to have good liver function. I did advise him of the importance of elminating alcohol completely so as to avoid further liver damage with potential for cirrhosis and increase morbidity and mortality from that. He will continue his phlebotomy every 3 months and will check iron studies every 6 months. I will send a new order over to the blood bank for him to start that this month. I shall check the below laboratories as well as his yearly ultrasound. We did review that he needs his laboratories and ultrasound yearly due to the hemochromatosis and some scarring in the liver. We reviewed the theoretical increased risk of hepatoma in patients with chronic liver disease and the underlying hemochromatosis. We did review that he will be due for a follow-up screening colonoscopy in 2026. I will plan to see him at the end of 2025 for a follow-up visit and we will then schedule the colonoscopy for him at that time. I did advise him to contact me prior to next year's office visit if he has any problems or questions I can be of assistance with. Roberto was comfortable with this plan. 01/17/2025 Family history of colon cancer (ICD-10 - Z80.0) Overall, Roberto appears well. While he most likely does have some liver fibrosis from his previous alcohol use and the hemochromatosis, he appears to continue to have good liver function. I did advise him of the importance of elminating alcohol completely so as to avoid further liver damage with potential for cirrhosis and increase morbidity and mortality from that. He will continue his phlebotomy every 3 months and will check iron studies every 6 months. I will send a new order over to the blood bank for him to start that this month. I shall check the below laboratories as well as his yearly ultrasound. We did review that he needs his laboratories and ultrasound yearly due to the hemochromatosis and some scarring in the liver. We reviewed the theoretical increased risk of hepatoma in patients with chronic liver disease and the underlying hemochromatosis. We did review that he will be due for a follow-up screening colonoscopy in 2026. I will plan to see him at the end of 2025 for a follow-up visit and we will then schedule the colonoscopy for him at that time. I did advise him to contact me prior to next year's office visit if he has any problems or questions I can be of assistance with. Roberto was comfortable with this plan. 01/17/2025 Liver fibrosis (ICD-10 - K74.00) Eliminate alcohol completely Overall, Roberto appears well. While he most likely does have some liver fibrosis from his previous alcohol use and the hemochromatosis, he appears to continue to have good liver function. I did advise him of the importance of elminating alcohol completely so as to avoid further liver damage with potential for cirrhosis and increase morbidity and mortality from that. He will continue his phlebotomy every 3 months and will check iron studies every 6 months. I will send a new order over to the blood bank for him to start that this month. I shall check the below laboratories as well as his yearly ultrasound. We did review that he needs his laboratories and ultrasound yearly due to the hemochromatosis and some scarring in the liver. We reviewed the theoretical increased risk of hepatoma in patients with chronic liver disease and the underlying hemochromatosis. We did review that he will be due for a follow-up screening colonoscopy in 2026. I will plan to see him at the end of 2025 for a follow-up visit and we will then schedule the colonoscopy for him at that time. I did advise him to contact me prior to next year's office visit if he has any problems or questions I can be of assistance with. Roberto was comfortable with this plan. Plan Of Treatment Pending Test Test Name Order Date LIVER PROFILE 01/05/2012 LIVER PROFILE 04/15/2021 LIVER PROFILE 09/17/2022 LIVER PROFILE 01/18/2024 LIVER PROFILE 01/17/2025 LIVER PROFILE 02/19/2018 LIVER PROFILE 04/15/2020 CBC w DIFF 04/15/2020 CBC w DIFF 01/17/2025 CBC w DIFF 09/17/2022 CBC w DIFF 01/18/2024 CBC w DIFF 04/15/2021 PROTHROMBIN TIME (PT, INR) 04/15/2021 PROTHROMBIN TIME (PT, INR) 04/15/2020 ALPHA-FETOPROTEIN,TUMOR MARKER 9 ALPHA-FETOPROTEIN,TUMOR MARKER 1 ALPHA-FETOPROTEIN,TUMOR MARKER 5 ALPHA-FETOPROTEIN,TUMOR MARKER 4 ALPHA-FETOPROTEIN,TUMOR MARKER 3 ALPHA-FETOPROTEIN,TUMOR MARKER 2 ALPHA-FETOPROTEIN,TUMOR MARKER 4 US ABD 04/15/2020 HCV LIVER FIBROSIS, FIBRO TEST 2 US ABDOMEN COMP WITH ELASTOGRAPHY 2021 Prothrombin Time INR 01/18/2024 Prothrombin Time INR 01/17/2025 Alpha Fetoprotein 04/15/2021 Liver Fibrosis Pnl 09/17/2022 Liver Fibrosis Pnl 01/17/2025 Liver Fibrosis Pnl 01/18/2024 US abdomen comp w elastography 4 US abdomen comp w elastography 5 US abdomen comp w elastography 3 US abdomen comp w elastography 4 Therapeutic Phlebotomy 02/04/2025 Future Test Test Name Order Date COLONOSCOPY 01/14/2016 COLONOSCOPY 04/15/2021 Next Appt Details Provider Name:Serjio Richey , 01/21/2026 09:10:00 AM, [address] [facility], [address], [place], [address], Insurance Providers Payer Name Payer Address Payer Phone Subscriber Number Group Number Insured Name Patient Relationship to Insured Coverage Start Date Coverage End Date [facility] [address] [place] [phone] [id number] ROBERTO POLANCO Self - patient is the insured 9 9 Medical (General) History Medical History History ICD Code Colonoscopy 12/17/2009-hyperplastic poly p Hemochromatosis,which is cur rently being treated with phlebotomy every 2-3 months-liver biopsy in 1993 was negative for fibrosis nor cirrhosis- - normal alpha-fetoprotein level and ultrasound in January [...] normal iron saturation and ferritin level. Denies [place],DM,CVA,Lung disease,renal dise ase HTN Neg. colonoscopy in 03/2016 Negative screening colonoscopy in May of 2021 Surgical History Surgery Date(Month/Year) Right shoulder
--- OUTSIDE RECORDS SUMMARY | 2025-02-04 15:50 | XMS_ITS | Clinical Summary ---
Author Organization [facility] Address [address] [place] [address] Phone Care Team Providers Care Veterinary Poultry Inspector Name Role Phone Maria T Duncan MD Primary Care Provider [phone] Social History Tobacco Use Types Packs/Day Years Used Date Smoking Tobacco: Never Assessed Sex and Gender Information Value Date Recorded Sex Assigned at Male 05/01/2024 10:23 AM EDT Legal Sex Male 10:19 PM EST Gender Identity Male 05/01/2024 10:23 AM EDT Sexual Orientation Straight 05/01/2024 10 :23 AM EDT Plan of Treatment Health Maintenance Due Date Last Done Comments Colorectal Cancer Screening: Colonoscopy 1960 DTaP,Tdap,and Td Vaccines (1 - Tdap) 02/12/1980 Pneumococcal Vaccine: 50+ Ye ars (1 of 1 - PCV) 2011 Zoster Vaccines (1 of 2) 2011 Cholesterol Screening (Lipid Panel) 01/16/2022 HIV Screening 01/16/2022 Hepatitis C Screening 01/16/2022 Social Influencers of Health Screening 01/16/2022 Depression Screening 02/15/2024 COVID-19 Vaccine (1 - 2024-2 6 season) 2024 Influenza Vaccine (#1) 2024 RSV Immunization Adult Patie nts (1 [...] age to complete this topic Insurance [facility] Care Teams Veterinary Poultry Inspector Relationship Specialty Start Date End Date Maria T Duncan MD [address] [place] [id number] PCP - General Internal Medicine 05/01/24
--- OUTSIDE RECORDS SUMMARY | 2025-02-04 15:51 | XMS_ITS ---
Author Name [facility] Organization Unknown Care Team Organization Name Specialty Phone Email Start Date End Da te [facility] Maria T Duncan Primary Care 09/01/2023 024 [facility] Maria T Duncan Primary Care 12/22/2021 024
--- OUTSIDE RECORDS SUMMARY | 2025-02-04 15:51 | XMS_ITS | Clinical Summary ---
Author Organization [facility] Prior to 07/14/24 Address [address] [place] [address] Care Team Providers Care Software Asset Management Analyst Name Role Phone Roberto Gonzales MD Primary [...] (1 of 2) 2011 Influenza Vaccine (#1) 2024 RSV Adult > 60+ Yrs or [...] Group Subscriber ID Effective Dates Phone Address [facility] [id number] 2021-Livan narvaez [address] [facility] [address] [place] [address] O Care Teams Software Asset Management Analyst Relationship Specialty Start Date End Date Roberto Gonzales MD PCP - General Oncology 08/05/17
--- OUTSIDE RECORDS SUMMARY | 2025-02-04 15:51 | XMS_ITS | Patient Health Record ---
Author Organization [facility] Address [address] [place] [address] Care Team Providers Care Family Literacy Coordinator Name Role Phone ROSETTA CAMPBELL MD Primary Care Provider Unavailab RUSTAM Chacko Unavailable [phone] Reason For Referral No Information Medications Medication SIG (Take, Route, Frequency, Duration) Notes Start Date End Date Status Metoprolol Tartrate 25 MG Tablet 1 tab(s) orally daily Active Cialis 10 MG Tablet 1 tab(s) orally as needed.; Duration: 30 days 06/20/2018 Activ e Social History Tobacco Use: Social History Observation Description Date Details (start date - stop date) Current Smoker NA - NA Social History Tobacco Use: Social Info Question Answer Notes Smoking Are you a: current smoker Additional Details Category Social Info Options Details General 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 exposure: unknown Past year's travels: none 2017 alcohol use: yes few beers a week drug use: no 30 years ago Hobbies/Exercise habits: fishing ,wood working, hiking Coffee/Tea/Soda: 2-3 cups daily Marital Status experience no Living with on and off Pets 1 cat smokers in household no Drugs no Problems Problem Type SNOMED Code ICD Code Onset Dates Problem Status W/U Status Risk Notes Problem Reduced libido (7397650) Decreased libido (R68.82) Active confirmed Problem Hereditary hemochromatosis (82598817) Hereditary hemochromatosis (E83.110) Active confirmed Problem Erectile dysfunction (disorder) (845517274) Erectile dysfunction, unspecified erectile dysfunction type (N52.9) Active confirmed Problem Current drinker of alcohol (635785) Alcohol use (Z78.9) Active confirmed Problem Blood chemistry abnormal (859663802) Low testosterone in male (R79.89) Active confirmed Plan Of Treatment Future Test Test Name Order Date PSA 12/19/2018 CBC W/ AUTOMATED DIFF 12/19/2018 COMP. METABOLIC 12/19/2018 TSH WITH REFLEX TO FT4 12/19/2018 TESTOSTERONE, TOTAL AND FREE (MALES grea ter than 15YRS)(BRL)(RED TOP) 12/19/2018 TESTOSTERONE, TOTAL AND FREE (MALES grea ter than 15YRS)(BRL)(RED TOP) 12/21/2018 Insurance Providers Payer Name Payer Address Payer Phone Subscriber Number Group Number Insured Name Patient Relationship to Insured Coverage Start Date Coverage End Date [facility] [address] [place], [place] [phone] [id number] ROSETTA POLANCO Self - patient is the insured Medical (General) History Medical History History ICD Code HTN Hemochromatosis dx in his 30 s by liver Bx-Dr Richey. Phlebotomy q week for 60 wks then q M-down to q 2-3 M cervical disc disease C1-2-3-4 ETOH use Decreased libido, ED Surgical History Surgery Date(Month/Year) Right Shoulder 1999
--- OUTSIDE RECORDS SUMMARY | 2025-02-04 15:51 | XMS_ITS | Patient Health Record ---
Author Organization [facility] Address [address] [place] [address] Care Team Providers Care Compensation Intern Name Role Phone BRADY JACOME Primary Care Provider [phone] Allergies No Known Allergies Results Component Value Reference Range Notes CT LUNG SCREENING Reviewed date:05/01/2024 05:18:17 PM Interpretation: Performing Lab: Notes/Report: Note See Note [facility], a member of [employer] Patient Name: ROBERTO MARTINEZ Date of : 1960 Reason for Exam: Lung cancer screening, >=20 pk yr smoking history in last 15 yrs (Age 50-80y) Exam Date: 05/01/2024 [id number] EST Report Status: Final Ordering Provider: CARINA SILVA PCP: BRADY JACOME History: 64 year-old 44 pack-year current smoker, asymptomatic, for lung cancer screening. Comparison: 03/26/23 Technique: Helical volumetric imaging of the thorax was performed, using low-dose technique, without IV contrast. DLP: 105.87 mGy/cm C TDIvol: 2.85 mGy Buck Travis Iterative reconstruc tion technique Findings: Lungs and [...] Chest CT in 12 months. [place] ([id number]) -------- FINAL REPOR T -------- Dictated By: Azul Patel i Dictated Date: 05/01 12:10 ET Assigned Physician: Azul Davis Reviewed and Electro nically Signed By: Azul Davis Signed Date: 025 12:20 ET Workstation ID: [id number] Transcribed By: Self Edit Transcribed Date: 05/01/2024 [...] W/U Status Risk Notes Problem Mixed hyperlipidemia (114445612) Mixed hyperlipidemia (E78.2) Active confirmed Problem Hemochromatosis (274763364) Hemochromatosis, unspecified (E83.119) Active confirmed Problem Tobacco user (147991944) Nicotine dependence, cigarettes, uncomplicated (F17.210) Active confirmed Problem Major depression, single episode (54763404) Major depressive disorder, single episode, unspecified (F32.9) Active confirmed Problem Male erectile disorder (439689557) Male erectile disorder (F52.21) Active confirmed Problem Essential hypertension (84016740) Essential (primary) hypertension (I10) Active confirmed Vital Signs Heart Rate 85 /min 02/23/2024 98.2 Temperature 98.2 degrees Fahrenheit 02/23/2024 98.2 Blood pressure diastolic 80 mm Hg 02/23/2024 98. 2 Oximetry 97 % 02/23/2024 98.2 Height 69 in 02/23/2024 98.2 Blood pressure systolic 130 mm Hg 02/23/2024 98.2 Weight 171.6 lbs 02/23/2024 98.2 BMI 25.34 kg/m2 02/23/2024 98.2 Encounters Encounter Location Date Provider Diagnosis [address] [id number] 02/23/2024 BRADY JACOME Encounter for genera l adult medical examination without abnormal findings Z00.00 ; Essential (primary) hypertension I10 ; Major depressive disorder, single episode, unspecified F32.9 ; Male erectile disorder F52.21 ; Nicotine dependence, cigarettes, uncomplicated F17.210 ; Hemochromatosis, unspecified E83.119 and Mixed hyperlipidemia E78.[address] [phone] 02/23/2024 BRADY JACOME Assessments Encounter Date Diagnosis [...] Check lipid panel. Hemochromatosis. He goes to [facility] and gets phlebotomies every [address] Richey Male erectile disorder. Continue Cialis 10 MG as needed. Nicotine dependence. He started on nicotine gum 2 mg. Advised not to take gum while he is smoking. Smoking cessation advised. Eye screening. He sees his heavy cleaner at least once a year. He wears [...] Check lipid panel. Hemochromatosis. He goes to [facility] and gets phlebotomies every [address] Richey Male erectile disorder. Continue Cialis 10 MG as needed. Nicotine dependence. He started on nicotine gum 2 mg. Advised not to take gum while he is smoking. Smoking cessation advised. Eye screening. He sees his heavy cleaner at least once a year. He wears [...] Check lipid panel. Hemochromatosis. He goes to [facility] and gets phlebotomies every [address] Richey Male erectile disorder. Continue Cialis 10 MG as needed. Nicotine dependence. He started on nicotine gum 2 mg. Advised not to take gum while he is smoking. Smoking cessation advised. Eye screening. He sees his heavy cleaner at least once a year. He wears [...] Check lipid panel. Hemochromatosis. He goes to [facility] and gets phlebotomies every [address] Richey Male erectile disorder. Continue Cialis 10 MG as needed. Nicotine dependence. He started on nicotine gum 2 mg. Advised not to take gum while he is smoking. Smoking cessation advised. Eye screening. He sees his heavy cleaner at least once a year. He wears [...] Check lipid panel. Hemochromatosis. He goes to [facility] and gets phlebotomies every [address] Richey Male erectile disorder. Continue Cialis 10 MG as needed. Nicotine dependence. He started on nicotine gum 2 mg. Advised not to take gum while he is smoking. Smoking cessation advised. Eye screening. He sees his heavy cleaner at least once a year. He wears [...] Check lipid panel. Hemochromatosis. He goes to [facility] and gets phlebotomies every [address] Richey Male erectile disorder. Continue Cialis 10 MG as needed. Nicotine dependence. He started on nicotine gum 2 mg. Advised not to take gum while he is smoking. Smoking cessation advised. Eye screening. He sees his heavy cleaner at least once a year. He wears [...] Check lipid panel. Hemochromatosis. He goes to [facility] and gets phlebotomies every [address] Richey Male erectile disorder. Continue Cialis 10 MG as needed. Nicotine dependence. He started on nicotine gum 2 mg. Advised not to take gum while he is smoking. Smoking cessation advised. Eye screening. He sees his heavy cleaner at least once a year. He wears [...] Future Test Test Name Order Date Albumin/Creatinine Ratio,Urine-[id number] Lipid Panel-[id number] 02/23/2024 Comp. Metabolic Panel [id number] PSA (Serial Monitor)-[id number] 02/23/2024 Next Appt Details Provider Name:ABREU A GUL , 02/25/2025 08:00:00 AM, [address] [place] [address], [phone], Insurance Providers Payer Name Payer Address Payer Phone Subscriber Number Group Number Insured Name Patient Relationship to Insured Coverage Start Date Coverage End Date [facility] [address] [place] [phone] [id number] Roberto Martinez Self - patient is the insured Medical (General) History Medical History History ICD Code Nicotine dependence Hypertension hemochromatosis and gets phlebotomies fatemeh barlow 6 weeks, sees Dr. Richey Erectile dysfunction Surgical History Surgery Date(Month/Year) right shoulder surgery
[2025-02-04 16:22] LABS: Iron 98 mcg/dL (45-160); Percent Iron Saturation 37 % (15-50); Total Iron Binding Capacity 262 mcg/dL (228-428); Unsaturated Iron Binding 164 ug/dL
[2025-02-04 16:26] LABS: Ferritin 59 ng/mL (20-250)
== END 2025-02-04 12:43 ==
LOC: HO.BBR 12:42
PROVIDERS: PCP Hospitalist; Visit Provider Internal Medicine
DX: E83.110 Hereditary hemochromatosis (principal)
CPT/HCPCS: 36415; 82728; 83540